=== PATIENT | female | born 1940 | race Caucasian/White ===

== ENCOUNTER 2017-02-17 10:27 | Emergency (ER) | payer OTHER ==
--- NOTE | 2017-02-17 10:49 | CPEKG ---
Heart Rate: 57 RR Interval: 1053 P-R Interval: 172 QRSD Interval: 90 QT Interval: 404 QTC Interval: 394 P Broaddus: 63 QRS Broaddus: -25 T Wave Broaddus: 26 EKG Severity - OTHERWISE NORMAL ECG - EKG Impression: SINUS RHYTHM EKG Impression: BORDERLINE LEFT AXIS DEVIATION Electronically Signed By: Héctor Comer 17-Feb-2017 15:37:34
--- NOTE | 2017-02-17 10:50 | EDPHY ---
HPI/HX/ROS/PE/MDM Narrative: CHIEF COMPLAINT: Chest pain HPI: The patient is a 76 y/o female, with a history of hypertension, complaining of intermittent chest "heaviness" and lightheadedness for the last month. Her most recent episode this morning started a couple hours ago. Her symptoms generally present every morning as she makes her coffee and sits down to drink it. She denies current pain, but "feels like it's hard to breathe." She denies syncope, nausea, vomiting, abdominal pain, cough, or fever. She denies cardiac disease history, but reports she had a stress test [address] Beasley and he later recommended a cardiac cath for leg swelling, which she has not had yet. REVIEW OF SYSTEMS: Aside from elements discussed in the HPI, a comprehensive 10-point review of systems was reviewed and is negative. PMH: Hypertension, osteoporosis SOCIAL HISTORY: at bedside. Safety And Health Manager: Dr. Beasley PHYSICAL EXAM: General:Patient is alert, in no acute distress. ENT:Eyes are normal to inspection. ENT inspection normal. Neck: Normal inspection. Full range of motion. Respiratory:No respiratory distress. Breath sounds normal bilaterally. Cardiovascular: Regular rate and rhythm. Strong peripheral pulses. Normal cap refill. Abdomen:The abdomen is nontender to palpation. There are no peritoneal signs. Back: Normal to inspection. No tenderness to palpation. Skin: Normal color. No rash. Warm and dry. Extremities: 1+ trace edema bilateral lower extremities, Normal appearance. Full range of motion. Neuro: Oriented x3. Normal motor function. Normal sensory function. ED Course: IV established. Labs drawn including CBC, CHEM, troponin. Patient placed on medical biller coder. Chest x-ray ordered. The 12 lead EKG was interpreted by myself. See hard copy and/or "tracemaster" electronic copy for interpretation. Patient's Na is low at 126; however, her sodium is chronically low. I've recommended following up with her PCP for this. 1150: Consulted with Dr. Dixon, cardiology. He assessed patient in the ED and recommended outpatient nuclear study. Patient agreed with this plan. She will be given strict return precautions. MDM: I see no signs of PE, TAD, ACS, PNA, PTX. - Data Points Imaging Results: Imaging Impressions Chest X-Ray 06/02/17 10:48 Impression: 1. No active cardiopulmonary disease seen. Tiny bilateral pleural effusions are suspected, however. 2. Mild compression superior endplate of L2. Consider DEXA scan at some point to evaluate for underlying bone mineral density. Imaging: I viewed and interpreted images myself Laboratory Results: Laboratory Results 02/17/17 10:40 02/17/17 10:40 02/17/17 02/17/17 10:40 10:40 WBC 6.72 10^3/uL 10^3/uL (3.80-9.50) RBC 4.12 10^6/uL L 10^6/uL (4.18-5.33) Hgb 12.7 g/dL g/dL (12.6-16.3) Hct 36.5 % L % (38.0-47.0) MCV 88.6 fL fL (81.5-99.8) MCH 30.8 pg pg (27.9-34.1) MCHC 34.8 g/dL g/dL (32.4-36.7) RDW 12.7 % % (11.5-15.2) Plt Count 251 10^3/uL 10^3/uL (150-400) MPV 9.4 fL fL (8.7-11.7) Neut % (Auto) 35.4 % L % (39.3-74.2) Lymph % (Auto) 54.6 % H % (15.0-45.0) [place] % (Auto) 8.2 % % (4.5-13.0) Eos % (Auto) 0.9 % % (0.6-7.6) Baso % (Auto) 0.6 % % (0.3-1.7) Nucleat RBC Rel Count 0.0 % % (0.0-0.2) Absolute Neuts (auto) 2.38 10^3/uL 10^3/uL (1.70-6.50) Absolute Lymphs (auto) 3.67 10^3/uL H 10^3/uL (1.00-3.00) Absolute Monos (auto) 0.55 10^3/uL 10^3/uL (0.30-0.80) Absolute Eos (auto) 0.06 10^3/uL 10^3/uL (0.03-0.40) Absolute Basos (auto) 0.04 10^3/uL 10^3/uL (0.02-0.10) Absolute Nucleated RBC 0.00 10^3/uL 10^3/uL (0-0.01) Immature Gran % 0.3 % % (0.0-1.1) Immature Gran # 0.02 10^3/uL 10^3/uL (0.00-0.10) Sodium 126 mEq/L L mEq/L (134-144) Potassium 3.4 mEq/L L mEq/L (3.5-5.2) Chloride 89 mEq/L L mEq/L (97-110) Carbon Dioxide 30 mEq/l mEq/l (22-31) Anion Gap 7 mEq/L L mEq/L (8-16) BUN 14 mg/dL mg/dL (7-23) Creatinine 0.6 mg/dL mg/dL (0.6-1.0) Estimated GFR > 60 Glucose 58 mg/dL L mg/dL (70-100) Calcium 9.3 mg/dL mg/dL (8.5-10.4) Troponin I < 0.012 ng/mL ng/mL (0-0.034) General Time Seen by Provider: 02/17/17 10:38 Initial Vital Signs: Initial Vital Signs Temperature (C) 36.7 C 02/17/17 10:29 Heart Rate 62 02/17/17 10:29 Respiratory Rate 16 02/17/17 10:29 Blood Pressure 169/87 H 02/17/17 10:29 O2 Sat (%) 99 02/17/17 10:29 O2 Delivery Mode Room Air O2 (L/minute) 2 Allergies/Adverse Reactions: No Known Allergies Allergy (Unverified 05/25/13 18:44) Home Medications: Medication Instructions Recorded Amlopidine Dose Ink 05/25/13 Hydrochlorothiazide Dose Unk 05/25/13 Lisinopril Dose Unk 05/25/13 POTASSIUM CHLORIDE [K-ARACELIS] 20 meq PO BID #30 packet 05/25/13 Departure - Departure Disposition: Home, Routine, Self-Care Clinical Impression: Chest pain Qualifiers: Chest pain type: other chest pain Qualified Code(s): R07.89 - Other chest pain Condition: Good Instructions: Chest Pain (ED) Additional Instructions: 1. Follow up with Dr. Beasley next week for outpatient nuclear study. 2. Return to the ED for any worsening of symptoms. Referrals: Tomy Beasley MD [Medical Doctor] - As per Instructions Report Scribed for: Héctor Comer Report Scribed by: Preethi Mills Date of Report: 02/17/17 Time of Report: 10:50 Physician Review and Approval Statement: Portions of this note were transcribed by an ED scribe. I personally performed the history, physical exam, and medical decision making; and confirm the accuracy of the information in the transcribed note.
[2017-02-17 10:59] LABS: % IMMATURE GRANULYOCYTES 0.3 % (0.0-1.1); ABSOLUTE IMMATURE GRANULOCYTES 0.02 10^3/uL (0.00-0.10); ADD DIFF? NO; ADD MORPH? NO; ADD SCAN? NO; ATYPICAL LYMPHOCYTE FLAG 20 (0-99); FRAGMENT RBC FLAG 0 (0-99); HEMATOCRIT 36.5 % (38.0-47.0); HEMOGLOBIN 12.7 g/dL (12.6-16.3); LEFT SHIFT FLG 0 (0-99); LIPEMIA HEMOLYSIS FLAG 90 (0-99); MEAN CELL HEMOGLOBIN 30.8 pg (27.9-34.1); MEAN CELL HEMOGLOBIN CONCENTR. 34.8 g/dL (32.4-36.7); MEAN CELL VOLUME 88.6 fL (81.5-99.8); MEAN PLATELET VOLUME 9.4 fL (8.7-11.7); PLATELET CLUMPS FLAG 0 (0-99); PLATELET COUNT 251 10^3/uL (150-400); RED BLOOD CELL COUNT 4.12 10^6/uL (4.18-5.33); RED CELL DISTRIBUTION WIDTH 12.7 % (11.5-15.2)
[2017-02-17 11:03] VITALS: RESP 18
[2017-02-17 11:19] LABS: CALCIUM 9.3 mg/dL (8.5-10.4); CARBON DIOXIDE 30 mEq/l (22-31); CHLORIDE 89 mEq/L (97-110); CREATININE 0.6 mg/dL (0.6-1.0); GLOMERULAR FILTRATION RATE > 60; GLUCOSE 58 mg/dL (70-100); SODIUM 126 mEq/L (134-144)
[2017-02-17 11:27] LABS: ANION GAP 7 mEq/L (8-16); POTASSIUM 3.4 mEq/L (3.5-5.2)
[2017-02-17 11:31] LABS: TROPONIN I < 0.012 ng/mL (0-0.034)
--- NOTE | 2017-02-17 12:28 | GCON ---
[f rep st] CONSULTATION CARDIOLOGY CONSULTATION I have been asked to see the patient for chest pain. The patient has anterior chest discomfort. She gets this discomfort, and it feels like it may be a pressure on her chest. It is not a tightnes s, and there is no radiation to her jaw, arms, or neck. There is no radiation to the back. It is not associated with lightheadedness, sweatiness, dizziness, palpitations. It is not associate d with nausea, vomiting. She has been noticing it for a month. The discomfort, when it is bad, can be 6/10. It is often in the morning when she wakes up, and then it might come a few times during the day. She had similar discomfort to this before, and in October she saw Dr. Beasley, who did a stress test that was normal, an echocardiogram that was normal, and yet he talked to the patient about possibly doing an angiogram. They never did an angiogram. She is getting ready to leave for [facility], where she will be after March 03 for the summer. She has no nausea, vomiting, diarrhea, or constipation. No pleuritic chest pain. No fever, chills, cough. No syncope, near syncope. No hot, swollen joints. No major rashes. No arthralgias. She has no trauma. She is not having any other complaints, she tells me. She is not having migraine he adaches. No focal neurologic issues. No history of atrial fibrillation. No history of other arrhythmias. CARDIAC RISK FACTORS: Positive for hypertension. Cardiac risk factors negative for hyperlipidemia, diabetes mellitus, obesity, hyperuricemia, family history of premature coronary disease, or known coronary artery disease. PAST MEDICAL HISTORY: FAMILY HISTORY: She has no family history of premature coronary disease. No history of unexplained sudden at a young age. SOCIAL HISTORY: She is from [facility], and she is going there for the summer near [place] . She lived in [place] for 30 years. She [place] a [place], and she is very excited, and she will be there all summer. She does not smoke. She does not drink significant amounts of a lcohol. She lives with her . She is active and gets about well. REVIEW OF SYSTEMS: A 12-point review of systems is negative, except as noted above. She also has a history of osteoporosis. ALLERGIES: None. MEDICATIONS: Amlodipine, hydrochlorothiazide, lisinopril, and KCl. PHYSICAL EXAMINATION: VITAL SIGNS: Blood pressure 130/70, heart rate 66, respiratory rate 12. She is afebrile. HEENT: Pupils equal and reactive. Mucous membranes in the mouth moist. NECK: Supp le. CARDIOVASCULAR: S1, S2. Soft systolic murmur, left sternal border. No diastolic murmur. No S3, S4. No rubs. PULMONARY: Rhonchi. No rales, wheezing or dullness. ABDOMEN: Soft, nontender, without masses. CVA, no tenderness. EXTREMITIES: No edema, inflammation or ulceration. She has a little puffiness at her ankles. NEUROLOGIC: Cranial nerves 2-12 appear to be grossly normal. Mo tor and sensory intact. PSYCH: No obvious anxiety or depression. SKIN: Age-related changes. LABS: Troponins negative. A recent stress test and echocardiographic study have been negative with in the last 6 months for the same kind of discomfort. She does have anemia at 36.5. Sodium 126, potassium 3.4, chloride 89, CO2 30, BUN 14, creatinine 0.6. EKG shows nonspecific ST-T changes. ASSESSMENT AND PLAN: Chest discomfort. The cause of her chest discomfort is not clear. It is not typical angina. It does not come with exertion. It does not go away with rest. It is timed in the morning and may be related to food. There is nothing to suggest disease of the great vessels. Her pulses are full and equal. There is nothing to suggest pulmonary embolic disease. There is nothing to suggest major other GI or pulmonary pathology right now, such as a paraesophagea l hernia, early GI bleed, etc. I do not think she is having an acute coronary syndrome by any means . However, my partner did discuss with her the possibility of coronary angiogram, and I talked to her about doing an angiogram today to make sure she was fine. I also went over noninvasive options, suc h as a nuclear imaging stress test. The last stress she had she passed and did very well, had no ch est pain, no arrhythmias; however, it was not with nuclear imaging, so she has decided she wants to go home, get a study with nuclear imaging. I have told her that if she deteriorates or gets worse, develops new symptoms or persistent symptoms, or has any impending sense of doom, significant arrhyt hmias, etc., she needs to come to the emergency room, and she says she will do that. She will be wi th family. She will also watch for the evolution of these symptoms to see if it morphs into something that may be more GI or more musculoskeletal or more pulmonary, and she will work with her own doctors on this . All her questions have been answered. I have discussed her case with the emergency room physician. I think that she should do well with a nuclear imaging study, and she will call the office and get it done right away. Then if it shows t hat she needs further evaluation or angiography, we can get that done for her. She understands all the options, and this is what she would like to do right now. She does have an anemia, which needs to be watched. It could be that this is gastroesophageal. It could be that she has had some blood loss, may have GERD, hiatal hernia, peptic ulcer disease, etc., and she will david ch for these symptoms and for black stools and keep an eye on things. All her questions have been answered. She is going to follow up with her primary care doctor, and s he is going to call our office today to set up a nuclear stress test and an appointment with Dr. Tegan watkins, her soldering machine operator automatic, who she would like to follow with. /[id number]/MODL
[2017-02-17 12:44] VITALS: BP 174/86; PULSE 55; TEMP 97.7; O2SAT 100
== END 2017-02-17 12:30 | disposition home or self-care (01) ==
DX: R07.89 Other chest pain (principal); I10 Essential (primary) hypertension

== ENCOUNTER → 2017-02-21 | Outpatient (CLI) | payer OTHER | LOC: BHFA 09:30 | PROVIDERS: ATTEND Internal Medicine Interventional Cardiology | DX: R07.9 Chest pain, unspecified (principal) | CPT/HCPCS: 78452; 93017; A9500 ==

== ENCOUNTER 2017-06-15 07:27 | Day surgery (SDC) | payer OTHER ==
[2017-06-15] MEDS ORDERED: FAMOTIDINE 20 MG TAB PO ONE (07:30)
[2017-06-15] MEDS ORDERED: DIAZEPAM 5 MG TAB PO ONE (07:30)
[2017-06-15] MEDS ORDERED: diphenhydrAMINE 25 MG CAP PO ONE (07:30)
[2017-06-15] MEDS ORDERED: ASPIRIN EC 325 MG TAB PO ONE (07:30)
[2017-06-15] MEDS ORDERED: NS 1,000 ML IV ONE (07:30)
--- NOTE | 2017-06-15 07:50 | CPEKG ---
Heart Rate: 70 RR Interval: 857 P-R Interval: 152 QRSD Interval: 78 QT Interval: 388 QTC Interval: 419 P Commerce: 55 QRS Commerce: -41 T Wave Commerce: 44 EKG Severity - ABNORMAL ECG - EKG Impression: SINUS RHYTHM EKG Impression: LEFT ANTERIOR FASCICULAR BLOCK Electronically Signed By: Elder De La O 15-Jun-2017 17:30:57
[2017-06-15 08:10] LABS: % IMMATURE GRANULYOCYTES 0.2 % (0.0-1.1); ABSOLUTE IMMATURE GRANULOCYTES 0.01 10^3/uL (0.00-0.10); ADD DIFF? NO; ADD MORPH? NO; ADD SCAN? NO; ATYPICAL LYMPHOCYTE FLAG 20 (0-99); FRAGMENT RBC FLAG 0 (0-99); HEMOGLOBIN 12.8 g/dL (12.6-16.3); LEFT SHIFT FLG 0 (0-99); LIPEMIA HEMOLYSIS FLAG 90 (0-99); MEAN CELL HEMOGLOBIN 31.1 pg (27.9-34.1); MEAN CELL HEMOGLOBIN CONCENTR. 34.6 g/dL (32.4-36.7); MEAN CELL VOLUME 89.8 fL (81.5-99.8); MEAN PLATELET VOLUME 9.5 fL (8.7-11.7); PLATELET CLUMPS FLAG 0 (0-99); PLATELET COUNT 271 10^3/uL (150-400); RED BLOOD CELL COUNT 4.12 10^6/uL (4.18-5.33); RED CELL DISTRIBUTION WIDTH 12.5 % (11.5-15.2)
[2017-06-15 08:21] LABS: INR 1.06 (0.83-1.16); PROTIME(PATIENT) 13.7 SEC (12.0-15.0)
[2017-06-15 08:28] LABS: CALCIUM 9.4 mg/dL (8.5-10.4); CARBON DIOXIDE 28 mEq/l (22-31); CHLORIDE 95 mEq/L (97-110); CHOLESTEROL 176 mg/dL (140-220); CHOLESTEROL/HDL RATIO 2.51 RATIO (1.00-4.44); CREATININE 0.8 mg/dL (0.6-1.0); GLOMERULAR FILTRATION RATE > 60; GLUCOSE 78 mg/dL (70-100); HIGH DENSITY LIPOPROTEIN 70 mg/dL (40-85); LDL/HDL RATIO 1.34 RATIO (1.00-3.22); LOW DENSITY LIPOPROTEIN 94 mg/dL (80-100); MAGNESIUM 1.8 mg/dL (1.6-2.3); NON-HIGH DENSITY LIPOPROTEIN 106 mg/dL (90-129); SODIUM 133 mEq/L (134-144); TRIGLYCERIDE 62 mg/dL (35-135); VERY LOW DENSITY LIPOPROTEINS 12 mg/dL (8-25)
[2017-06-15 08:46] LABS: ANION GAP 10 mEq/L (8-16); POTASSIUM 3.6 mEq/L (3.5-5.2)
[2017-06-15] MEDS ORDERED: LIDOCAINE 1% 300 MG/30 ML SDV ONE (08:49)
[2017-06-15] MEDS ORDERED: VERAPAMIL 5 MG/2 ML VIAL ONE (08:50)
[2017-06-15] MEDS ORDERED: MIDAZOLAM 2 MG/2 ML VIAL ONE (08:50)
[2017-06-15] MEDS ORDERED: HEPARIN 10,000 UNIT/10 ML MDV ONE (08:50)
[2017-06-15] MEDS ORDERED: IOPAMIDOL (ISOVUE-370) 150 ML BTL IV ONE (08:50)
[2017-06-15] MEDS ORDERED: fentaNYL 100 MCG/2 ML INJ ONE (08:50)
--- NOTE | 2017-06-15 09:16 | PDHPUP ---
History & Physical Update H&P update statement: This history and physical update is based on an assessment of the patient which was completed after admission or registration (within 24 hours), but prior to the surgery/procedure. H&P update: H&P reviewed & patient examined, no change in patient's condition since H&P completed
--- NOTE | 2017-06-15 09:17 | PDPROPOC ---
Sedation Plan of Care Sedation Plan of Care: vital signs stable, mental status noted, patient educated of risks, benefits, alternatives, patient can tolerate sedation ASA Classification: ASA 3 Planned drugs: fentanyl, midazolam, other (etomidate possibly) Mallampati Score: Class 2 Mallampati Reference Image: Patient passed 3-3-2 rule?: Yes
[2017-06-15] MEDS ORDERED: OXYCODONE/APAP 5/325 TAB PO PRN (11:32)
[2017-06-15] MEDS ORDERED: ATROPINE SULFATE 1 MG/10 ML SYR IVP PRN (11:32)
[2017-06-15] MEDS ORDERED: NITROGLYCERIN 0.4 MG BTL SL PRN (11:32)
[2017-06-15] MEDS ORDERED: ONDANSETRON 4 MG/2 ML VIAL IVP PRN (11:32)
[2017-06-15] MEDS ORDERED: HYDROCODONE/APAP 5/325 TAB PO PRN (11:32)
--- NOTE | 2017-06-15 13:50 | CPIP ---
[f rep st] INVASIVE CARDIAC PROCEDURE PROCEDURE PERFORMED: 1. Selective coronary angiography. 2. Left heart catheterization. 3. Left ventriculogram. 4. TR band arteriotomy repair, this was a left radial approach. COMPLICATIONS: None. INDICATIONS/APPROPRIATE USE CRITERIA: The patient has an intermediate risk stress test given the EKG changes, with exercise and also has had CCS class 3 symptoms of angina occurring at rest or with min imal activity with several spells of that over the past 6 months. PROCEDURE IN DETAIL: After informed consent was obtained n.p.o. status was confirmed, the region of the left wrist was cleaned, prepped, and draped in a sterile fashion. A plethysmography and trace as sisted Denton's test was performed, documenting dual arterial supply to the left index finger. The pa tient had a 5-Qatari sheath placed in the right radial artery with single entry puncture of the vesse l. The patient then underwent the previously mentioned diagnostic procedure with use of a JL3.5, JR4 , Jose L Right and a 5-Qatari pigtail catheter. Standard wire exchange technique was utilized for all catheter exchanges. The left main coronary lumen is approximately 8 mm in size and trifurcates into an LAD, small ramus, and circumflex system. The JL3.5 catheter tended to deep throat into the proximal LAD, however, the circumflex vessel was adequately visualized. The LAD is approximately 3 mm in size giving rise to se veral important septal and diagonal branches with no evidence of flow-limiting obstruction, dissectio n or thrombus. The circumflex is likewise approximately 3 mm in size. It gives rise to 2 important obtuse marginal branches and a posterolateral ventricular branch. No flow-limiting obstruction, diss ection or thrombus is identified. There is no luminal irregularity. A small ramus branch is approxi mately 2 mm in size and also has SIM-3 flow, poorly visualized because of the positioning of the cat heter, however, this vessel is too small to be a candidate for intervention and is not obviously obst ructed. The Jose L Right tended to seat better into the right coronary artery and was ultimately u sed for right coronary artery visualization. The right coronary is approximately 2.75 mm in size pro ximally and is a dominant vessel giving rise to the posterior descending blood vessel. No flow-limit ing obstruction, dissection or thrombus is identified. The patient underwent left heart catheterizat ion demonstrating normal left ventricular end-diastolic pressure measured at 9 mmHg. The patient und erwent left ventriculogram in the MONTANEZ projection, demonstrating preserved and hypercontractile left v entricular systolic function. Ejection fraction is 70% with no segmental wall motion abnormalities. The visualized portion of the thoracic aorta reveals 3 sinuses of Valsalva most consistent with a tri leaflet aortic valve. There is no evidence of aortic dissection or aneurysm formation. SUMMARY OF FINDINGS: The patient has no evidence of significant [place] vessel coronary disease. The re is excellent SIM-3 flow in the left anterior descending, circumflex and right coronary artery sys tems. The patient has normal left ventricular systolic function without evidence of elevation in helen stolic pressure. A cause for the patient's spells of chest discomfort, palpitations and near syncope is not identified on the basis of this study. Consideration for long-term implantable monitoring ve rsus AliveCor device could be considered. Ongoing management of the patient's risk factors should be continued. /[id number]/MODL
== END 2017-06-15 14:47 | disposition home or self-care (01) ==
LOC: FCATH 07:27
PROVIDERS: ATTEND Internal Medicine Cardiovascular Disease
DX: I20.9 Angina pectoris, unspecified (principal); R06.09 Other forms of dyspnea; I10 Essential (primary) hypertension; R22.0 Localized swelling, mass and lump, head; M81.0 Age-related osteoporosis without current pathological fracture; M54.5 Low back pain; Z86.010 Personal history of colon polyps
CPT/HCPCS: J1644; J2250; J3010; Q9967

== ENCOUNTER → 2017-08-24 | Outpatient (CLI) | payer OTHER | LOC: FIMAGING 10:35 | PROVIDERS: ATTEND Internal Medicine | DX: Z12.31 Encounter for screening mammogram for malignant neoplasm of breast (principal) | CPT/HCPCS: G0202 ==

== ENCOUNTER 2017-10-15 13:46 | Emergency (ER) | payer OTHER ==
[2017-10-15 13:54] VITALS: RESP 16; O2SAT 97
[2017-10-15] MEDS ORDERED: TDAP ADULT 0.5 ML INJ (BOOSTRIX) IM ONE (13:59)
--- NOTE | 2017-10-15 15:11 | EDPHY ---
H & P Time Seen by Provider: 10/15/17 14:10 HPI/ROS: CHIEF COMPLAINT: Laceration left 3rd and 4th fingers HISTORY OF PRESENT ILLNESS: 76-year-old female presents to the emergency department with laceration to her left 3rd and 4th fingers. The patient was at home using a knife and accidentally cut her finger on a knife. The incident happened just prior to arrival. She is right-hand dominant. She is unsure of her last tetanus shot. ROS: Denies numbness or tingling in her fingers, retained foreign body. Past Medical/Surgical History: Hypertension Social History: Smoking Status: Never smoked Physical Exam: On examination patient has a 1 cm laceration to the palmar aspect of the left 3rd finger overlying mid phalanx. No palpable crepitus or other bony abnormality. No evidence of retained foreign body. There is also 1.5 cm flap laceration to the palmar aspect of the left 4th finger overlying mid phalanx. No active bleeding noted. No evidence of retained foreign body or tendon injury identified. Full range of motion of her fingers. The other fingers do not appear injured. Normal sensation to light touch with normal 2 point discrimination. Constitutional: Initial Vital Signs Temperature (C) 36.6 C 10/15/17 13:50 Heart Rate 66 10/15/17 13:50 Respiratory Rate 16 10/15/17 13:50 Blood Pressure 135/71 H 10/15/17 13:50 O2 Sat (%) 97 10/15/17 13:50 O2 Delivery Mode Room Air Allergies/Adverse Reactions: No Known Allergies Allergy (Verified 06/13/17 16:24) Home Medications: Medication Instructions Recorded Alendronate Sodium [Fosamax 70 MG 70 mg PO DODGE@0700 06/13/17 (*)] Chlorthalidone [Chlorthalidone 25 25 mg PO DAILY 06/13/17 mg (*)] Cholecalciferol Vit D3 [Vitamin D3 1,000 units PO DAILY 06/13/17 (*)] Lisinopril [Zestril 20 mg (*)] 40 mg PO DAILY 06/13/17 Terazosin HCl [Hytrin 5 MG (*)] 5 mg PO DAILY 06/13/17 MDM/Departure - [facility] Procedures: Laceration repair #1. Verbal consent was obtained from the patient. The 1 cm laceration on the left middle finger was anesthetized using digital block using 1% lidocaine without epinephrine 0.5% bupivacaine without epinephrine. The wound was irrigated with saline, draped and explored to its base with a gloved finger. There were no deep structures involved. No tendon injury was identified. The wound was repaired with 5 0 Ethilon, 3 sutures. The wound repair was simple. The procedure was performed by myself. Laceration repair #2. Verbal consent was obtained from the patient. The the 1.5 cm flap laceration on the left 4th finger was anesthetized using digital block using 1% lidocaine without epinephrine 0.5% bupivacaine without epinephrine. The wound was irrigated with saline, draped and explored to its base with a gloved finger. There were no deep structures involved. No tendon injury was identified. The wound was repaired with 5 0 Ethilon, 5 sutures. The wound repair was simple. The procedure was performed by myself. Medications Given: Discontinued Medications Diphtheria/Tetanus/Acell Pertussis (Boostrix) 0.5 ml IM .ONCE ONE Stop: 10/15/17 14:00 Last Admin: 10/15/17 14:21 Dose: 0.5 ml ED Course/Re-evaluation: 76-year-old female presents with lacerations. See procedure note. Patient's tetanus shot was updated. She was given wound care precautions. - Depart Disposition: Home, Routine, Self-Care Clinical Impression: Laceration of left middle finger Qualifiers: Encounter type: initial encounter Damage to nail status: without damage Foreign body presence: without foreign body Qualified Code(s): S61.213A - Laceration without foreign body of left middle finger without damage to nail, initial encounter Laceration of left ring finger Qualifiers: Encounter type: initial encounter Damage to nail status: without damage Foreign body presence: without foreign body Qualified Code(s): S61.215A - Laceration without foreign body of left ring finger without damage to nail, initial encounter Condition: Good Instructions: Care For Your Stitches (ED), Laceration (ED), Acute Wounds (ED) Additional Instructions: Wound Care Follow-Up: Removal of sutures in 10 days. Suture removal is complimentary in uncomplicated cases. Infection or abnormal findings would require reevaluation by the MD. In that case, you may be billed. Return if he notices any signs or symptoms of infection such as redness, swelling, increased pain, fever, purulent drainage. Referrals: Nelida Brown MD [Primary Care Provider] - As per Instructions
[2017-10-15 15:33] VITALS: BP 151/82; PULSE 54; TEMP 98.1
== END 2017-10-15 15:31 | disposition home or self-care (01) ==
PROC: 0HQGXZZ Repair Left Hand Skin, External Approach (ICD-10-PCS; principal; 2017-10-15)
DX: S61.213A Laceration without foreign body of left middle finger without damage to nail, initial encounter (principal); S61.215A Laceration without foreign body of left ring finger without damage to nail, initial encounter; I10 Essential (primary) hypertension; Z23 Encounter for immunization; W26.0XXA Contact with knife, initial encounter

== ENCOUNTER → 2018-09-06 | Outpatient (CLI) | payer OTHER | LOC: BHFA 11:30 | PROVIDERS: ATTEND Internal Medicine Cardiovascular Disease | DX: I34.0 Nonrheumatic mitral (valve) insufficiency (principal) ==

== ENCOUNTER → 2018-09-14 | Outpatient (CLI) | payer OTHER | LOC: FIMAGING 12:04 | PROVIDERS: ATTEND Internal Medicine | DX: Z12.31 Encounter for screening mammogram for malignant neoplasm of breast (principal) ==

== ENCOUNTER → 2018-09-21 | Outpatient (CLI) | payer OTHER | LOC: FIMAGING 10:47 | PROVIDERS: ATTEND Orthopaedic Surgery | DX: M17.11 Unilateral primary osteoarthritis, right knee (principal) ==

== ENCOUNTER 2018-10-03 10:04 | Inpatient (IN) | payer OTHER ==
[~2018-10-03 10:04] MED LIST: DEXAMETHASONE 4 MG/ML VIAL ONE; LIDOCAINE 2% 100 MG/5 ML SYR ONE; ONDANSETRON 4 MG/2 ML VIAL ONE; PHENYLEPHRINE HCL 100 MCG/ML SYR ONE; PROPOFOL/EMULSION 500 MG/50 ML BOTTLE IV ONE; ROPIVACAINE HCL 150 MG/30 ML INJ ONE; fentaNYL 100 MCG/2 ML INJ ONE
[2018-10-03] MEDS ORDERED: TRANEXAMIC ACID 3,000 MG/50 ML BAG IRR ONE (11:08)
[2018-10-03] MEDS ORDERED: ceFAZolin 2 GM/DEXTROSE 100 ML IV ONE (11:20)
[2018-10-03] MEDS ORDERED: DEXAMETHASONE 4 MG/ML VIAL IVP ONE (11:20)
[2018-10-03] MEDS ORDERED: ACETAMINOPHEN 325 MG TAB PO ONE (11:20)
[2018-10-03] MEDS ORDERED: FAMOTIDINE 20 MG TAB PO ONE (11:20)
[2018-10-03] MEDS ORDERED: LR 1,000 ML IV ONE (11:21)
[2018-10-03] MEDS ORDERED: LIDOCAINE 1% 2 ML INJ ONE (11:55)
--- NOTE | 2018-10-03 12:52 | PDANEPAE ---
ANE History of Present Illness R knee DJD, here for R TKA ANE Past Medical History - Cardiovascular History Hx Hypertension: Yes Hx Arrhythmias: No Hx Chest Pain: No Hx Coronary Artery / Peripheral Vascular Disease: No Hx CHF / Valvular Disease: No Hx Palpitations: No Cardiovascular History Comment: leaky heart valves - Pulmonary History Hx COPD: No Hx Asthma/Reactive Airway Disease: No Hx Recent Upper Respiratory Infection: No Hx Oxygen in Use at Home: No Hx Sleep Apnea: No Sleep Apnea Screening Result - Last Documented: Negative - Neurologic History Hx Cerebrovascular Accident: No Hx Seizures: No Hx Dementia: No - Endocrine History Hx Diabetes: No - Renal History Hx Renal Disorders: No - Liver History Hx Hepatic Disorders: No - Neurological & Psychiatric Hx Hx Neurological and Psychiatric Disorders: No - Cancer History Hx Cancer: No - Congenital Disorder History Hx Congenital Disorders: No - GI History Hx Gastrointestinal Disorders: No - Other Health History Other Health History: none - Chronic Pain History Chronic Pain: No - Surgical History Prior Surgeries: none in last 5yrs. right knee scope 8/10 yrs ago ANE Review of Systems Review of Systems: - Exercise capacity METS (RN): 4 METS ANE Patient History - Allergies Allergies/Adverse Reactions: No Known Allergies Allergy (Verified 09/25/18 14:22) - Home Medications Home Medications: Alendronate Sodium [Fosamax 70 MG (*)] 70 mg PO DODGE@0700 06/13/17 [Last Taken ] Terazosin HCl [Hytrin 5 MG (*)] 5 mg PO HS 06/13/17 [Last Taken 10/02/18] Hydrochlorothiazide [HCTZ (*)] 25 mg PO DAILY 09/21/18 [Last Taken 10/01/18] Nebivolol HCl [Bystolic 5 mg (*)] 5 mg PO DAILY 09/21/18 [Last Taken 10/03/18 07 :00] Irbesartan [Avapro] 300 mg PO DAILY 10/01/18 [Last Taken 10/02/18] - NPO status NPO Since - Liquids (Date): 10/03/18 NPO Since - Liquids (Time): 09:00 NPO Since - Solids (Date): 10/02/18 NPO Since - Solids (Time): 22:00 - Smoking Hx Smoking Status: Never smoked - Family Anes Hx Family Hx Anesthesia Complications: none ANE Labs/Vital Signs - Vital Signs Blood Pressure: 191/92 Heart Rate: 56 Respiratory Rate: 16 O2 Sat (%): 96 Height: 166.37 cm Weight: 58.06 kg ANE Physical Exam - Airway Neck exam: FROM Mallampati Score: Class 1 Mouth exam: normal dental/mouth exam - Pulmonary Pulmonary: no respiratory distress, no rales or rhonchi - Cardiovascular Cardiovascular: regular rate and rhythym, no murmur, rub, or gallop - ASA Status ASA Status: III ANE Anesthesia Plan Anesthesia Plan: GA with mask, spinal Regional Anesthesia: single shot NB
[2018-10-03] MEDS ORDERED: MIDAZOLAM 2 MG/2 ML VIAL IVP ONE (12:59)
[2018-10-03] MEDS ORDERED: MIDAZOLAM 2 MG/2 ML VIAL ONE (12:59)
[2018-10-03] MEDS ORDERED: ROPIVACAINE 0.2% 80 MG, EPINEPHrine 0.2 MG, KETOROLAC TROMETHAMINE 30 MG in SYRINGE 0 ML IU ONE (13:00)
[2018-10-03] MEDS ORDERED: TRANEXAMIC ACID 3,000 MG in NS (SYRINGE) 50 ML IRR ONE (13:00)
[2018-10-03] MEDS ORDERED: diphenhydrAMINE 25 MG CAP PO PRN (13:45)
[2018-10-03] MEDS ORDERED: TEMAZEPAM 15 MG CAP PO PRN (13:45)
[2018-10-03] MEDS ORDERED: MAGNESIUM HYDROXIDE 30 ML UDCUP PO PRN (13:45)
[2018-10-03] MEDS ORDERED: POLYETHYLENE GLYCOL 3350 17 GM PKT PO PRN (13:45)
[2018-10-03] MEDS ORDERED: DIPHENOXYLATE/ATROPINE LOMOTIL 1 TAB PO PRN (13:45)
[2018-10-03] MEDS ORDERED: oxyCODONE IR 5 MG TAB PO PRN (13:45)
[2018-10-03] MEDS ORDERED: LACTULOSE 20 GM/30 ML UDCUP PO PRN (13:45)
[2018-10-03] MEDS ORDERED: PROMETHAZINE HCL 25 MG SUPPR PR PRN (13:45)
[2018-10-03] MEDS ORDERED: ONDANSETRON 4 MG/2 ML VIAL IVP PRN (13:45)
[2018-10-03] MEDS ORDERED: CYCLOBENZAPRINE 10 MG TAB PO PRN (13:45)
[2018-10-03] MEDS ORDERED: METOCLOPRAMIDE 10 MG/2 ML VIAL IVP PRN (13:45)
[2018-10-03] MEDS ORDERED: BISACODYL 10 MG SUPP PR PRN (13:45)
[2018-10-03] MEDS ORDERED: PROMETHAZINE HCL 25 MG/ML INJ IVP PRN (13:45)
[2018-10-03] MEDS ORDERED: ONDANSETRON DISINTEGRATING 4 MG TAB PO PRN (13:45)
[2018-10-03] MEDS ORDERED: MEPERIDINE 25 MG/0.5 ML AMP IVP PRN (13:50)
[2018-10-03] MEDS ORDERED: fentaNYL 100 MCG/2 ML INJ IVP PRN (13:50)
[2018-10-03] MEDS ORDERED: HYDROmorphONE/DILAUDID 2 MG/ML INJ IVP PRN (13:50)
[2018-10-03] MEDS ORDERED: DIAZEPAM 5 MG/ML 1 ML SYR IVP PRN (13:50)
[2018-10-03] MEDS ORDERED: NALOXONE HCL 0.4 MG/ML INJ IVP PRN (13:50)
[2018-10-03] MEDS ORDERED: LR 1,000 ML IV SCH (14:00)
--- NOTE | 2018-10-03 14:04 | PDMN ---
Medical Necessity [place] [facility] [place], Total A-2days: 77 yo s/p R TKA, meets IP criteria for advanced age, pain control needs, ASA III, hx of HTN, leaky heart valves.
[2018-10-03] MEDS ORDERED: PROPOFOL 200 MG/20 ML VIAL ONE (14:15)
--- NOTE | 2018-10-03 14:52 | POSTOPPROG ---
Post Op Note Date of Operation: 10/03/18 Surgeon: Janeth Nguyen District Gauger: Berta Nguyen PAc Anesthesiologist: Statz Anesthesia: Spinal Pre-op Diagnosis: R knee DJD Post-op Diagnosis: same Indication: pain Procedure: R TKA Findings: DJD knee Inf/Abcess present in the surg proc area at time of surgery?: No EBL: 50-100
--- NOTE | 2018-10-03 14:59 | POSTANESTH ---
Post Anesthetic Evaluation Cardiovascular Status: Normal, Stable Respiratory Status: Normal, Stable Level of Consciousness/Mental Status: Can Participate in Eval Pain Control: Adequate, Prn Tx Ordered Nausea/Vomiting Control: Adequate, Prn Tx Ordered Complications Possibly Related to Anesthesia: None Noted (Moving bilat LE)
[2018-10-03] MEDS: ACETAMINOPHEN 325 MG TAB PO SCH (17:28)
[2018-10-03] MEDS: ASPIRIN 81 MG CHEWABLE TAB PO SCH (20:43)
[2018-10-03] MEDS: SENNOSIDES/DOCUSATE SODIUM TAB PO SCH (20:43)
[2018-10-03] MEDS: FAMOTIDINE 20 MG TAB PO SCH (20:44)
[2018-10-03] MEDS: ceFAZolin 2 GM/DEXTROSE 100 ML IV SCH (20:45)
[2018-10-03] MEDS ORDERED: TERAZOSIN HCL 5 MG CAP PO SCH (21:00)
[2018-10-04] MEDS: ACETAMINOPHEN 325 MG TAB PO SCH ×2 (00:04→05:15)
[2018-10-04] MEDS: ceFAZolin 2 GM/DEXTROSE 100 ML IV SCH (05:15)
[2018-10-04 07:25] VITALS: BP 152/81
[2018-10-04] MEDS: SENNOSIDES/DOCUSATE SODIUM TAB PO SCH (08:00)
[2018-10-04] MEDS: FAMOTIDINE 20 MG TAB PO SCH (08:01)
[2018-10-04] MEDS: ASPIRIN 81 MG CHEWABLE TAB PO SCH (08:01)
[2018-10-04] MEDS ORDERED: NEBIVOLOL HCL 5 MG TAB PO SCH (09:00)
[2018-10-04] MEDS ORDERED: HYDROCHLOROTHIAZIDE 25 MG TAB PO SCH (09:00)
[2018-10-04] MEDS ORDERED: IRBESARTAN 150 MG TAB PO SCH (09:00)
[2018-10-04] MEDS ORDERED: PNEUMOC 13-VAL CONJ-DIP CRM/PF 0.5 ML SYR (PREVNAR 13) IM ONE (10:33)
--- NOTE | 2018-10-04 10:56 | SOAPPROG ---
SOAP Progress Note Assessment/Plan: Assessment: Patient is doing well POD 1 s/p R TKA Pain management: pain is well controlled on oral pain meds. VTE ppx: recommend aspirin 81 mg BID for 4 weeks, cont SHUN and SCDs Anemia: level is expected initially postop. Asymptomatic. Continue to monitor D/c planning: Patient has done better than anticipated and would like to be discharged to home today. Patient must be released from PT before discharge to home. hyponatremia: restrict oral fluid intake to 1L, encourage sodium rich fluids Plan: 10/04/18 10:55 Subjective: patient is doing well today, denies SOB, chest pain and N/V Objective: Vital Signs Temp Pulse Resp BP Pulse Ox 36.3 C 52 L 16 152/81 H 95 10/04/18 07:24 10/04/18 07:24 10/04/18 07:24 10/04/18 07:24 10/04/18 07:24 Laboratory Results 10/04/18 05:24 10/04/18 05:24 10/03/18 10/04/18 10/05/18 05:59 05:59 05:59 Intake Total 1550 Output Total 30 300 Balance 1520 -300 RLE; incision dressing is clean and dry, NVi, +pf/df ICD10 Worksheet Patient Problems: Problems Problem Status Onset Primary localized osteoarthritis of right knee Acute Chest pain Acute
--- NOTE | 2018-10-04 11:56 | ASMTLACE ---
[facility] Length of stay for Answers: 2 days current admission Acuity / Level of Answers: Yes Care: Did the patient have an inpatient admission? # of Emergency department Answers: 1-2 visits in the last 6 months Score: 6 Date Signed: 10/04/2018 11:55 AM Electronically Signed By:DANIEL Allan
--- NOTE | 2018-10-05 17:54 | GOP ---
DATE OF OPERATION: 10/03/2018 SURGEON: Bety Nguyen MD DIGITAL STRATEGIST: Berta Nguyen PA-C ANESTHESIA: Spinal. PREOPERATIVE DIAGNOSIS: Right knee osteoarthritis. POSTOPERATIVE DIAGNOSIS: Right knee osteoarthritis. PROCEDURE PERFORMED: Right total knee arthroplasty with computer navigation, robotic assist. FINDINGS: Severe lateral patellofemoral osteoarthritis. ESTIMATED BLOOD LOSS: 30 cc. INDICATIONS: The patient is a 77-year-old female with severe and progressive pain and deformity of t he right knee unresponsive to conservative care. The risks and benefits of surgical intervention wer e explained in detail. DESCRIPTION OF PROCEDURE: The patient was brought to the operative room and placed on the table in t he supine position. Spinal anesthesia was induced without difficulty. A pneumatic tourniquet was appl ied about the right proximal thigh, and the leg was prepped and draped in a sterile fashion. The leg wong was applied. After exsanguination by elevation the tourniquet was inflated to 250 mmHg. Incision was made anterior medial from the tibial tuberosity to a point 2 cm proximal to the superior pole of the patella. Medial parapatellar arthrotomy was carried out from the superior pole of the pa tella and posteriorly in line with the fibers of the Type II VMO. The medial collateral ligament was elevated and the infrapatellar fat pad was resected. The patella was everted and the articular surface was excised. A 35 mm patellar button was placed. Attention was turned first to the distal aspect of the femur. After exposure of the femur, 2 half pi ns were placed for fixation of the femoral array. In a similar fashion, 2 pins were placed anteromed ial on the tibia for fixation of the tibial array. External land marking and registration of the hip center was performed without difficulty. Internal femoral and tibial registration was carried out w ithout difficulty and the femoral and tibial checkpoints were placed and verified for accuracy. Attention was turned to the femur. The foot print for the size 3 femoral component was cut with the saw using the [employer] robotic system and verified for accuracy against the CT based plan. In a similar f ashion, the saw was used to cut the footprint for the size 4 tibial component using the [employer] system an d verified for accuracy against the CT based plan. The tibial articular surface was excised without d ifficulty, followed by the intercondylar box cut. The knee was extended and the remnants of the medial and lateral meniscus were excised. The posterior capsule was injected with ropivacaine, epinephrine and Toradol. A size 4 tibial tray was positioned . Trial reduction was then carried out. There was excellent range of motion, alignment, and stability using the 4 x 9 mm polyethylene. All trials were then removed. The joint was thoroughly irrigated and carefully dried. The components were implanted. The permanent 4 x 9 mm polyethylene was placed without difficulty. The tourniquet was deflated and all bleeders were coagulated. The wound was thoroughly irrigated and closed using interrupted sutures of 2-0 Vicryl for the joint capsule. The subcu was closed with 3-0 V icryl and the skin with 4-0 Monocryl. Dermabond and Steri-Strips were applied followed by a compress mena dressing. The patient was then moved from the operating room to the recovery room in good conditi on, having tolerated the procedure well. /[id number]/MODL
--- NOTE | 2018-10-08 13:55 | GDS ---
ADMISSION DIAGNOSIS: Right knee osteoarthritis. DISCHARGE DIAGNOSIS: Right knee osteoarthritis. PROCEDURE: Right total knee arthroplasty. VTE PROPHYLAXIS: Recommend aspirin 81 mg twice daily for 4 weeks. BRIEF DESCRIPTION OF HOSPITAL STAY: Patient was admitted for an elective joint arthroplasty. The pa parth tolerated the procedure well and has passed physical therapy. The patient was given appropriat e antibiotic prophylaxis and venous thromboembolism prophylaxis. The patient's pain was well control led on oral pain medication, patient was holding down food, and had urinated. Decision was made to d ischarge the patient. The patient was given post-operative prescriptions pre-operatively. PLAN: Followup scheduled with Dr. Nguyen's office October 25 at 10:15. /[id number]/MODL
== END 2018-10-04 11:51 | disposition home or self-care (01) | DRG 470 ==
LOC: F3E 11:08 → F3N 18:05
PROVIDERS: ADMIT Orthopaedic Surgery; ATTEND Orthopaedic Surgery
PROC: 0SRC0JA Replacement of Right Knee Joint with Synthetic Substitute, Uncemented, Open Approach (ICD-10-PCS; principal; 2018-10-03 13:00)
PROC: 8E0Y0CZ Robotic Assisted Procedure of Lower Extremity, Open Approach (ICD-10-PCS; principal; 2018-10-03 13:00)
PROC: 8E0YXBZ Computer Assisted Procedure of Lower Extremity (ICD-10-PCS; principal; 2018-10-03 13:00)
DX: M17.11 Unilateral primary osteoarthritis, right knee (principal); I10 Essential (primary) hypertension; E87.1 Hypo-osmolality and hyponatremia; D64.9 Anemia, unspecified; Z23 Encounter for immunization
CPT/HCPCS: 97110-GP; 97161-GP; G0009; J0171; J0690; J1100; J1885; J2001; J2250; J2370; J2405; J2704; J2795; J3010

== ENCOUNTER 2018-10-19 07:06 | Inpatient (IN) | payer OTHER ==
--- NOTE | 2018-10-19 06:16 | PDGENHP ---
History and Physical History and Physical: Patient Name REBECCA RODRIGUEZ (77yo, F) ID# [id number] Appt. Date/Time 10/18/2018 10:45AM 1940 Service Dept. MAIN OFFICE Provider OLIVIA MILLS PA-C Insurance Med Primary: [employer]ARE[employer] (MEDICARE) Insurance # : [id number] Med Secondary: [employer] (MEDICARE SUPPLEMENT) Insurance # : [id number] Policy/Group # : [id number] Prescription: DSTPSDIR - Member is eligible. details Chief Complaint Patient is here 2 weeks s/p RTKA. Patient is having trouble weight bearing with and without her walker. Patient's Pharmacies [facility] #[id number] (ERX): [address] [facility], [facility] [id number], , Vitals 10/18/2018 11:39 am Ht: 5 ft 5 in Allergies Reviewed Allergies NKDA Medications Reviewed Medications alendronate 70 mg tablet 08/23/18 filled [facility] Bystolic 5 mg tablet 09/14/18 filled [facility] CeleBREX 200 mg capsule Take 2 capsules with dinner the night before surgery and one capsule daily with food for 3 weeks after surgyer 10/18/18 prescribed OLIVIA MILLS PA-C hydroCHLOROthiazide 25 mg tablet 07/13/15 filled [facility] irbesartan 300 mg tablet 09/25/18 filled [facility] lisinopril 20 mg tablet 08/02/18 filled [facility] oxyCODONE 5 mg tablet Take 1 tabs every 4 hours as needed for pain 09/20/18 filled [facility] spironolactone 25 mg tablet 09/13/18 filled [facility] terazosin 5 mg capsule TAKE 1 CAP AT BEDTIME 08/08/18 filled [facility] Vaccines None recorded. Problems Reviewed Problems Osteoarthritis of knee Family History Reviewed Family History Mother - Malignant neoplastic disease (onset age: 90) ( age: 91) Father - Diabetes mellitus (onset age: 60) ( age: 62) Social History Reviewed Social History Smoking Status: Never smoker Occupation: retired Chewing tobacco: none Alcohol intake: Occasional Caffeine intake: Moderate Illicit drugs: no Exercise level: Moderate Hand Dominance: Right Education: Post Graduate Live alone or with others?: (Notes: ) Surgical History Reviewed Surgical History Total knee arthroplasty - 10/03/2018 R knee (year not specified) 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 Past Pregnancies None recorded. Past Medical History Reviewed Past Medical History Arthritis: Y - R knee Hypertension: Y Osteopenia: Y Screening None recorded. HPI Pt. presents for knee pain 2 weeks s/p RTKA. Rebecca states that knee has always been painful since surgery- no acute worsening, but no improvement in pain. She is having pain with weight-bearing, both with and without walker. States that she had a fall in the bathroom on the day after surgery, but she thinks she fell backward and landed on her back as opposed to knee. No other known injury. She is currently taking Celebrex 200mg QD, Tylenol 1,000 mg TID and oxycodone 15-20mg QD. ROS ROS as noted in the HPI Physical Exam Patient is a 77-year-old female. Constitutional: General Appearance: healthy-appearing, NAD, and normal body habitus. Gait and Station: Appearance: antalgic gait and ambulates with walker. Cardiovascular System: Arterial Pulses Right: dorsalis pedis normal and posterior tibialis normal. Edema Right: no edema. Varicosities Right: no varicosities and capillary refill test normal. Lymph Nodes: Inspection/Palpation Right: no popliteal LAD. Knees: Inspection Right: no induration, warmth, erythema, or tibial torsion; genu valgum deformity and swelling (mild); and normal axial alignment. Bony Palpation Right: no tenderness of the lateral wall trochlear groove, the medial wall trochlear groove, or the lateral joint line and tenderness of the medial femoral condyle, the adductor tubercle, and the medial joint line. Soft Tissue Palpation Right: no tenderness of the lateral patellar retinaculum, the medial patellar retinaculum, the prepatellar bursa, the patellar tendon, the fat pad, the medial collateral ligament, the pes anserinus, the saphenous nerve, the iliotibial tract, the lateral collateral ligament, the popliteal fossa, the biceps femoris tendon, or the gastrocnemius. Active Range of Motion Right: limited; Did not assess range of motion due to fracture on xray. Stability Right : Did not assess ligamentous stability due to fracture on xray. Strength Right: Did not assess strength due to fracture on xray. Skin: Right Lower Extremity: normal. Neurologic: Sensation on the Right: T12 normal, L1 normal, L2 normal, L3 normal , L4 normal, and L5 normal. Psychiatric: Orientation: oriented to time, place, and person. Mood and Affect: normal mood and affect and active and alert. Heart Rate And Rhythm (normal) heart rate and rhythm. Lungs respirations unlabored. Assessment / Plan Xrays reviewed and show periprosthetic fracture of femur. Discussed pt. case with Dr. Nguyen who recommends pt. undergo revision surgery tomorrow (10/19/18). Pt. placed in knee brace at today's visit and advised to remain NWB until surgery tomorrow Discussed risks and benefits of operative intervention including but not limited to bleeding, infection, need for further surgery, blood clots, blood clots going to the lungs and rare perioperative complications including stroke, heart attack and . Patient understands risks and wishes to proceed. 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 Pt. also has hx of osteoperosis, hyponatremia, HTN. Pt. does not need refill of oxycodone. 1. Periprosthetic fracture M97.11XA: Periprosthetic fracture around internal prosthetic right knee joint, initial encounter 2. Pain in right knee M25.561: Pain in right knee XR, KNEE 3. History of total knee arthroplasty Z96.659: Presence of unspecified artificial knee joint 4. Acute postoperative pain G89.18: Other acute postprocedural pain Celebrex 200 mg capsule - Take 2 capsules with dinner the night before surgery and one capsule daily with food for 3 weeks after surgyer Qty: 23 capsule(s ) Refills: 0 [id number] XR, KNEE Periprosthetic fracture of medial femur Return to Office Martínez Nguyen M.D. for Surgery 120 at Surgery on 10/19/2018 at 09:15 AM Berta Nguyen PA-C for Surgery 120 at Surgery on 10/19/2018 at 09:15 AM OLIVIA MILLS PA-C for Post op 15 at MAIN OFFICE on 10/25/2018 at 10:45 AM Martínez Nguyen M.D. for Post op 15 at MAIN OFFICE on 11/15/2018 at 09: 45 AM Martínez Nguyen M.D. for Post op 15 at MAIN OFFICE on 12/27/2018 at 09: 45 AM Encounter Sign-Off Encounter signed-off by OLIVIA MILLS PA-C, 10/18/2018. Encounter performed and documented by OLIVIA MILLS PA-C Encounter reviewed & signed by OLIVIA MILLS PA-C on 10/18/2018 at 6:35pm There is not enough information to calculate an E&M code
--- NOTE | 2018-10-19 06:23 | PDHPUP ---
History & Physical Update H&P update statement: This history and physical update is based on an assessment of the patient which was completed after admission or registration (within 24 hours), but prior to the surgery/procedure. H&P update: no change in patient's condition since H&P completed
[~2018-10-19 07:06] MED LIST changes: -DEXAMETHASONE 4 MG/ML VIAL ONE; -LIDOCAINE 2% 100 MG/5 ML SYR ONE; -ONDANSETRON 4 MG/2 ML VIAL ONE; -PHENYLEPHRINE HCL 100 MCG/ML SYR ONE; -PROPOFOL/EMULSION 500 MG/50 ML BOTTLE IV ONE; +ROPIVACAINE 0.2% 80 MG, EPINEPHrine 0.2 MG, KETOROLAC TROMETHAMINE 30 MG in SYRINGE 0 ML IU ONE; -ROPIVACAINE HCL 150 MG/30 ML INJ ONE; +TRANEXAMIC ACID 3,000 MG in NS (SYRINGE) 50 ML IRR ONE; -fentaNYL 100 MCG/2 ML INJ ONE
[2018-10-19] MEDS ORDERED: ACETAMINOPHEN 325 MG TAB PO ONE (07:13)
[2018-10-19] MEDS ORDERED: FAMOTIDINE 20 MG TAB PO ONE (07:13)
[2018-10-19] MEDS ORDERED: DEXAMETHASONE 4 MG/ML VIAL IVP ONE (07:13)
[2018-10-19] MEDS ORDERED: ceFAZolin 2 GM/DEXTROSE 100 ML IV ONE (07:13)
[2018-10-19] MEDS ORDERED: LR 1,000 ML IV ONE (07:16)
[2018-10-19] MEDS ORDERED: TRANEXAMIC ACID 3,000 MG/50 ML BAG IRR ONE (08:16)
[2018-10-19] MEDS ORDERED: VANCOMYCIN 1 GM VIAL ONE (08:16)
[2018-10-19 08:20] LABS: PLATELET COUNT 465 10^3/uL (150-400)
[2018-10-19] MEDS ORDERED: MIDAZOLAM 2 MG/2 ML VIAL IVP ONE (09:08)
--- NOTE | 2018-10-19 09:12 | PDANEPAE ---
ANE Past Medical History - Cardiovascular History Hx Hypertension: Yes Hx Arrhythmias: No Hx Chest Pain: No Hx Coronary Artery / Peripheral Vascular Disease: No Hx CHF / Valvular Disease: No Hx Palpitations: No Cardiovascular History Comment: leaky heart valves - Pulmonary History Hx COPD: No Hx Asthma/Reactive Airway Disease: No Hx Recent Upper Respiratory Infection: No Hx Oxygen in Use at Home: No Hx Sleep Apnea: No Sleep Apnea Screening Result - Last Documented: Negative - Neurologic History Hx Cerebrovascular Accident: No Hx Seizures: No Hx Dementia: No - Endocrine History Hx Diabetes: No - Renal History Hx Renal Disorders: No - Liver History Hx Hepatic Disorders: No - Neurological & Psychiatric Hx Hx Neurological and Psychiatric Disorders: No - Cancer History Hx Cancer: No - Congenital Disorder History Hx Congenital Disorders: No - GI History Hx Gastrointestinal Disorders: No - Other Health History Other Health History: none - Chronic Pain History Chronic Pain: No - Surgical History Prior Surgeries: R TKA 10/03/18. right knee scope 8/10 yrs ago ANE Review of Systems Review of Systems: - Exercise capacity METS (RN): 4 METS ANE Patient History - Allergies Allergies/Adverse Reactions: No Known Allergies Allergy (Verified 09/25/18 14:22) - Home Medications Home medications: home medication list seen and reviewed Home Medications: Terazosin HCl [Hytrin 5 MG (*)] 5 mg PO HS 06/13/17 [Last Taken 10/18/18] Hydrochlorothiazide [HCTZ (*)] 25 mg PO DAILY 09/21/18 [Last Taken 2 Weeks Ago ~ 10/05/18] Nebivolol HCl [Bystolic 5 mg (*)] 2.5 mg PO DAILY 09/21/18 [Last Taken 10/19/18 06:00] Irbesartan [Avapro] 300 mg PO DAILY 10/01/18 [Last Taken 10/18/18] oxyCODONE IR [Oxycodone Ir (*)] 2.5 mg PO Q3HRS PRN 10/19/18 [Last Taken 06:00] - NPO status NPO Since - Liquids (Date): 10/19/18 NPO Since - Liquids (Time): 06:00 NPO Since - Solids (Date): 10/18/18 NPO Since - Solids (Time): 20:00 - Anes Hx Anes Hx: no prior problems - Smoking Hx Smoking Status: Never smoked - Family Anes Hx Family Hx Anesthesia Complications: none ANE Labs/Vital Signs - Labs Result Diagrams: 10/19/18 07:50 10/19/18 07:50 - Vital Signs Blood Pressure: 198/96 Heart Rate: 63 Respiratory Rate: 16 O2 Sat (%): 96 Height: 166.37 cm Weight: 57.153 kg ANE Physical Exam - Airway Neck exam: decreased ROM Mallampati Score: Class 2 Mouth exam: normal dental/mouth exam - Pulmonary Pulmonary: clear to auscultation - Cardiovascular Cardiovascular: regular rate and rhythym - ASA Status ASA Status: III ANE Anesthesia Plan Anesthesia Plan: spinal
[2018-10-19] MEDS ORDERED: PROPOFOL/EMULSION 500 MG/50 ML BOTTLE IV ONE (09:17)
[2018-10-19] MEDS ORDERED: BUPIVACAINE/DEXTROSE 7.5MG/ML 2 ML SPINAL AMP SP ONE (09:33)
[2018-10-19] MEDS ORDERED: ROPIVACAINE HCL 100 MG/20 ML INJ ONE (10:47)
[2018-10-19] MEDS ORDERED: ONDANSETRON 4 MG/2 ML VIAL IVP PRN ×2 (10:50→10:57)
[2018-10-19] MEDS ORDERED: LACTULOSE 20 GM/30 ML UDCUP PO PRN (10:50)
[2018-10-19] MEDS ORDERED: DIPHENOXYLATE/ATROPINE LOMOTIL 1 TAB PO PRN (10:50)
[2018-10-19] MEDS ORDERED: PROMETHAZINE HCL 25 MG SUPPR PR PRN (10:50)
[2018-10-19] MEDS ORDERED: POLYETHYLENE GLYCOL 3350 17 GM PKT PO PRN (10:50)
[2018-10-19] MEDS ORDERED: METOCLOPRAMIDE 10 MG/2 ML VIAL IVP PRN (10:50)
[2018-10-19] MEDS ORDERED: BISACODYL 10 MG SUPP PR PRN (10:50)
[2018-10-19] MEDS ORDERED: diphenhydrAMINE 25 MG CAP PO PRN (10:50)
[2018-10-19] MEDS ORDERED: PROMETHAZINE HCL 25 MG/ML INJ IVP PRN (10:50)
[2018-10-19] MEDS ORDERED: ONDANSETRON DISINTEGRATING 4 MG TAB PO PRN (10:50)
[2018-10-19] MEDS ORDERED: MAGNESIUM HYDROXIDE 30 ML UDCUP PO PRN (10:50)
[2018-10-19] MEDS ORDERED: DIAZEPAM 5 MG/ML 1 ML SYR IVP PRN (10:57)
[2018-10-19] MEDS ORDERED: NALOXONE HCL 0.4 MG/ML INJ IVP PRN (10:57)
[2018-10-19] MEDS ORDERED: MEPERIDINE 25 MG/0.5 ML AMP IVP PRN (10:57)
[2018-10-19] MEDS ORDERED: HYDROmorphONE/DILAUDID 2 MG/ML INJ IVP PRN (10:57)
[2018-10-19] MEDS ORDERED: fentaNYL 100 MCG/2 ML INJ IVP PRN (10:57)
[2018-10-19] MEDS ORDERED: LABETALOL HCL 5 MG/ML 20 ML MDV IVP PRN (10:57)
[2018-10-19] MEDS ORDERED: LR 500 ML IV PRN (10:57)
[2018-10-19] MEDS ORDERED: ALBUTEROL 3 ML DEYVIAL IH PRN (10:57)
[2018-10-19] MEDS ORDERED: NS 1,000 ML IV SCH (11:00)
--- NOTE | 2018-10-19 11:13 | POSTOPPROG ---
Post Op Note Date of Operation: 10/19/18 Surgeon: Janeth Nguyen Numerical Control Machine Operator: Brenda Lopez PA-C and Berta Nguyen PA-C Anesthesiologist: dr. Morley Anesthesia: Spinal Pre-op Diagnosis: periprosthetic femur fracture in setting of R TKA Post-op Diagnosis: same Indication: periprosthetic femur fracture Procedure: Revision R TKA, femoral component and poly exchange Findings: medial femoral condyle fracture Inf/Abcess present in the surg proc area at time of surgery?: No EBL: 50-100
--- NOTE | 2018-10-19 13:40 | PDMN ---
Medical Necessity Medical necessity: Pt meets IP criteria as of 10/19/2018 per and [facility] S-700 ( revision of TKA); Medicare IP only procedure
[2018-10-19] MEDS: ACETAMINOPHEN 325 MG TAB PO SCH ×2 (14:12→18:02)
[2018-10-19] MEDS ORDERED: IRBESARTAN 150 MG TAB PO ONE (14:15)
--- NOTE | 2018-10-19 15:56 | ASMTCMCOM ---
CM Note CM Note Notes: Pt in for R TKA revision. Today PT rec home/outpatient. Pt reports she feels safe with d/c home with assist and defer to MD on when to go back to outpatient PT. Anticipate pt will d/c when medically stable. CM available if MD does want to rec [facility]. Date Signed: 10/19/2018 03:55 PM Electronically Signed By:DANIEL Allan
[2018-10-19] MEDS: NEBIVOLOL HCL 5 MG TAB PO SCH (16:51)
[2018-10-19] MEDS: ceFAZolin 2 GM/DEXTROSE 100 ML IV SCH (16:52)
[2018-10-19] MEDS ORDERED: hydrALAZINE 20 MG/ML VIAL IVP ONE (18:00)
[2018-10-19] MEDS: SENNOSIDES/DOCUSATE SODIUM TAB PO SCH (20:43)
[2018-10-19] MEDS: TERAZOSIN HCL 5 MG CAP PO SCH (20:43)
[2018-10-19] MEDS: CYCLOBENZAPRINE 10 MG TAB PO PRN (20:43)
[2018-10-19] MEDS: ASPIRIN 81 MG CHEWABLE TAB PO SCH (20:43)
[2018-10-19] MEDS: FAMOTIDINE 20 MG TAB PO SCH (20:43)
[2018-10-19] MEDS: oxyCODONE IR 5 MG TAB PO PRN (22:15)
[2018-10-20] MEDS: ceFAZolin 2 GM/DEXTROSE 100 ML IV SCH (00:42)
[2018-10-20] MEDS: ACETAMINOPHEN 325 MG TAB PO SCH ×5 (00:42→23:42)
[2018-10-20] MEDS: TEMAZEPAM 15 MG CAP PO PRN ×2 (00:43→23:42)
[2018-10-20] MEDS: oxyCODONE IR 5 MG TAB PO PRN ×2 (05:19→21:24)
[2018-10-20 06:44] LABS: PLATELET COUNT 520 10^3/uL (150-400)
[2018-10-20] MEDS: NEBIVOLOL HCL 5 MG TAB PO SCH (09:14)
[2018-10-20] MEDS: SENNOSIDES/DOCUSATE SODIUM TAB PO SCH ×2 (09:15→21:24)
[2018-10-20] MEDS: FAMOTIDINE 20 MG TAB PO SCH ×2 (09:15→21:25)
[2018-10-20] MEDS: IRBESARTAN 150 MG TAB PO SCH (09:15)
[2018-10-20] MEDS: ASPIRIN 81 MG CHEWABLE TAB PO SCH ×2 (09:15→21:25)
--- NOTE | 2018-10-20 15:56 | SOAPPROG ---
SOAP Progress Note Assessment/Plan: Assessment: .; Patient is doing well POD 1 R TKA revision due to periprosthetic fracture pain is well controlled HTN: pateint has been working with medical coding auditor at [facility] to improve BP control and manage hyponatremia hyponatremia: 132 today, patient has been working with medical coding auditor at [facility] to modify BP meds and improve hyponatremia WBAT with FWW for 6 weeks, recommend hinged knee brace while walking and while sleeping until patient is seen in Dr. Nguyen's office. may take breaks throughout the day VTE ppx: recommend aspirin 81 mg BID for 4 weeks Anemia: patient h/h stable compared to preop. recommend monitoring closely for lightheadedness. CLL: patient was recently diagnosed with CLL by pathologist after first TKA 2 weeks ago. Patient has been notified and will follow up with hemonc postop. d/c planning: d/c to home most likely tomorrow. patient has great family support. Plan: 10/20/18 15:51 10/20/18 15:56 Subjective: patient is doing well, mild ain, denies SOB,chest pain and n/v Objective: Vital Signs Temp Pulse Resp BP Pulse Ox 36.3 C 70 14 175/81 H 97 10/20/18 15:27 10/20/18 15:27 10/20/18 15:27 10/20/18 15:27 10/20/18 15:27 Laboratory Results 10/20/18 05:56 10/20/18 05:56 10/19/18 10/20/18 10/21/18 05:59 05:59 05:59 Intake Total 1250 Output Total 1060 250 Balance 190 -250 RLE: incision dressing is clean and dry, NVI, +pf/df ICD10 Worksheet Patient Problems: Problems Problem Status Onset Chest pain Acute Primary localized osteoarthritis of right knee Acute
[2018-10-20] MEDS ORDERED: hydrALAZINE 20 MG/ML VIAL IVP ONE (17:15)
[2018-10-20] MEDS: TERAZOSIN HCL 5 MG CAP PO SCH (21:24)
[2018-10-20] MEDS: CYCLOBENZAPRINE 10 MG TAB PO PRN (21:25)
[2018-10-21 04:52] LABS: PLATELET COUNT 476 10^3/uL (150-400)
[2018-10-21] MEDS: ACETAMINOPHEN 325 MG TAB PO SCH (06:11)
[2018-10-21 07:40] VITALS: BP 172/87
[2018-10-21] MEDS: SENNOSIDES/DOCUSATE SODIUM TAB PO SCH (08:59)
[2018-10-21] MEDS: IRBESARTAN 150 MG TAB PO SCH (08:59)
[2018-10-21] MEDS: ASPIRIN 81 MG CHEWABLE TAB PO SCH (09:00)
[2018-10-21] MEDS: FAMOTIDINE 20 MG TAB PO SCH (09:00)
[2018-10-21] MEDS: NEBIVOLOL HCL 5 MG TAB PO SCH (09:00)
--- NOTE | 2018-10-21 11:40 | SOAPPROG ---
SOAP Progress Note Assessment/Plan: Assessment: .; Patient is doing well POD 2 R TKA revision due to periprosthetic femur fracture pain is well controlled HTN: pateint has been working with veterinary technician assistant at [facility] to improve BP control and manage hyponatremia hyponatremia: 132 today, patient has been working with veterinary technician assistant at [facility] to modify BP meds and improve hyponatremia WBAT with FWW for 6 weeks, recommend hinged knee brace while walking until patient is seen in Dr. Nguyen's office. while resting or sleeping, recommend patient take the knee brace off. VTE ppx: recommend aspirin 81 mg BID for 4 weeks Anemia: patient h/h stable compared to preop. recommend monitoring closely for lightheadedness. CLL: patient was recently diagnosed with CLL by pathologist after first TKA 2 weeks ago. Patient has been notified and will follow up with hemonc postop. d/c planning: d/c to home today. patient has great family support. Plan: 10/20/18 15:51 10/20/18 15:56 10/21/18 11:39 Subjective: patient is doing well, denies SOB, chest pain and N/V Objective: Vital Signs Temp Pulse Resp BP Pulse Ox 36.5 C 69 15 172/87 H 92 10/21/18 07:39 10/21/18 09:00 10/21/18 07:39 10/21/18 09:00 10/21/18 07:39 Laboratory Results 10/21/18 04:17 10/21/18 04:17 10/20/18 10/21/18 10/22/18 05:59 05:59 05:59 Intake Total 1250 350 Output Total 1060 550 350 Balance 190 -200 -350 RLE: incision dressing is clean and dry, NVI, +pf/df ICD10 Worksheet Patient Problems: Problems Problem Status Onset Periprosthetic fracture around internal prosthetic right knee joint Acute Status post revision of total replacement of right knee Acute Chest pain Acute Primary localized osteoarthritis of right knee Acute
--- NOTE | 2018-10-21 17:12 | ASMTDCNOTE ---
Case Management Discharge Discharge Order Complete? Answers: Yes Discharge Comments Notes: Per chart, patient discharged home independent with support from . Date Signed: 10/21/2018 05:12 PM Electronically Signed By:Albertina Carias
--- NOTE | 2018-10-22 09:55 | POSTANESTH ---
Post Anesthetic Evaluation Cardiovascular Status: Normal, Stable Respiratory Status: Normal, Stable Level of Consciousness/Mental Status: Can Participate in Eval Pain Control: Adequate, Prn Tx Ordered Nausea/Vomiting Control: Adequate, Prn Tx Ordered Complications Possibly Related to Anesthesia: None Noted
--- NOTE | 2018-10-24 07:54 | GOP ---
[f rep st] OPERATIVE REPORT DATE OF OPERATION: 10/19/2018 SURGEON: Bety Nguyen MD WOOL CLASSER: Brenda Lopez PA-C. PREOPERATIVE DIAGNOSIS: Right knee right femoral periprosthetic fracture. POSTOPERATIVE DIAGNOSIS: Right knee right femoral periprosthetic fracture. PROCEDURE PERFORMED: Total knee revision component. FINDINGS: ESTIMATED BLOOD LOSS: Minimal. INDICATIONS: The patient is a 77-year-old female who underwent a right total knee arthroplasty appro ximately two weeks ago. Patient had a mild increase in pain. She had a fall one day after surgery a nd was seen in the clinic and noted to have of her femoral component with a fem oral condyle fracture. Risks and benefits were discussed with the patient for revision surgery, and informed consent was obtained. DESCRIPTION OF PROCEDURE: anesthesia, a non-sterile tourniquet was placed on . She was then prepped and draped in the usual sterile fashion. Time-out was taken to confirm patient , laterality we then proceeded to elevate the extremity. The tourniquet was inflated to 2 50 mmHg. Incision was made to the prior incision site. We were able to identify the fracture area. The distal femoral component was removed. We had a small amount of bone that was adhered to the fem oral component. This was removed and placed back with bone graft to medial femoral condyle. We plac ed a screw to hold on and stabilize the medial femoral condylar component. We then used reamer to op en up the canal for a TS implant. We then placed a 50 mm stem with a size 3 trial component and a 9 mm polyethylene range of motion. Patient had good stability on flexion and extension. Th e fracture fragment was stable. We then removed the trial components. The incision was copiously ir rigated. We cemented in the size 3 Triathalon TS with a 50 mm stem and placed a final 4 x 9 mm we then copiously irrigated. The incision was closed in layers the patient can weig htbear as tolerated. She will use a hinged knee brace for two weeks after surgery. She will follow up with me in orthopedic clinic. /[id number]/MODL
== END 2018-10-21 12:40 | disposition home or self-care (01) | DRG 470 ==
LOC: F3N 07:06
PROVIDERS: ADMIT Orthopaedic Surgery; ATTEND Orthopaedic Surgery
PROC: 0SRC0L9 Replacement of Right Knee Joint with Medial Unicondylar Synthetic Substitute, Cemented, Open Approach (ICD-10-PCS; principal; 2018-10-19 09:30)
DX: S72.434A Nondisplaced fracture of medial condyle of right femur, initial encounter for closed fracture (principal); M97.11XA Periprosthetic fracture around internal prosthetic right knee joint, initial encounter; W19.XXXA Unspecified fall, initial encounter; Y92.012 Bathroom of single-family (private) house as the place of occurrence of the external cause; I10 Essential (primary) hypertension; M85.80 Other specified disorders of bone density and structure, unspecified site
CPT/HCPCS: 97116-GP; 97161-GP; 97164-GP; 97166-GO; C1713; J0171; J0360; J0690; J1100; J1885; J2250; J2704; J2795; J3370; L1832

== ENCOUNTER → 2018-11-16 | Outpatient (CLI) | payer OTHER | LOC: FIMAGING 13:31 ==

== ENCOUNTER 2018-11-21 10:09 | Inpatient (IN) | payer OTHER ==
[2018-11-21] MEDS ORDERED: fentaNYL 100 MCG/2 ML INJ IVP PRN (10:12)
[2018-11-21] MEDS ORDERED: NALOXONE HCL 0.4 MG/ML INJ IVP PRN (10:12)
[2018-11-21] MEDS ORDERED: FLUMAZENIL 0.5 MG/5 ML MDV IVP PRN (10:12)
[2018-11-21] MEDS ORDERED: MIDAZOLAM 2 MG/2 ML VIAL IVP PRN (10:12)
[2018-11-21] MEDS ORDERED: NS 1,000 ML IV SCH ×2 (10:15→19:30)
[2018-11-21 11:24] LABS: INR 1.05 (0.83-1.16); PROTIME(PATIENT) 13.3 SEC (12.0-15.0)
--- NOTE | 2018-11-21 12:08 | PDGENHP ---
History & Physical Chief Complaint: RUL NODULE History of Present Illness: GROWING RUL NODULE WITH SPICULATION. TISSUE DIAGNOSIS NEEDED. Pertinent Past, Social, Family History: NON SMOKER. S/P RT KNEE SURGERY 5 WEEKS AGO. Relevant Physical Exam: IN NO DISTRESS. Cardiorespiratory Assessment: RRR, CTA
--- NOTE | 2018-11-21 12:09 | PDPROPOC ---
Sedation Plan of Care Sedation Plan of Care: vital signs stable, mental status noted, patient educated of risks, benefits, alternatives, patient can tolerate sedation ASA Classification: ASA 2 Planned drugs: fentanyl, midazolam Mallampati Score: Class 2 Mallampati Reference Image: Patient passed 3-3-2 rule?: Yes
[2018-11-21] MEDS ORDERED: LIDOCAINE 1% 300 MG/30 ML SDV ONE ×2 (12:22→20:02)
--- NOTE | 2018-11-21 13:40 | PDRADPN ---
Radiology Procedure Note Date of Procedure: 11/21/18 Radiologist: Maribel Britton Anesthesia: IV Sedation Pre-op Diagnosis: RML lung nodule Post-op Diagnosis: same Indication: need tissue samling for growing nodule with spiculation Procedure: CT guided lung nodul biopsy Finding(s): target sampled. small PTX Inf/Abcess present in the surg proc area at time of surgery?: No
[2018-11-21] MEDS ORDERED: oxyCODONE IR 5 MG TAB ONE (14:17)
[2018-11-21] MEDS ORDERED: oxyCODONE IR 5 MG TAB PO PRN (14:25)
[2018-11-21] MEDS: ONDANSETRON 4 MG/2 ML VIAL IVP PRN ×2 (16:19→18:13)
[2018-11-21] MEDS ORDERED: IOPAMIDOL (ISOVUE 370) 100 ML BTL IV ONE (19:05)
[2018-11-21] MEDS ORDERED: ACETAMINOPHEN 325 MG TAB PO PRN (19:29)
[2018-11-21] MEDS ORDERED: HYDROmorphONE/DILAUDID 1 MG/ML INJ IVP PRN (19:29)
[2018-11-21] MEDS ORDERED: ONDANSETRON 4 MG/2 ML VIAL IVP PRN (19:29)
[2018-11-21] MEDS ORDERED: PROMETHAZINE HCL 25 MG/ML INJ IVP PRN (19:29)
[2018-11-21] MEDS ORDERED: ONDANSETRON DISINTEGRATING 4 MG TAB PO PRN (19:29)
--- NOTE | 2018-11-21 19:46 | PDCONSULT ---
Thermodynamic Physicist Note: 77 y/o female s/p RML lung biopsy earlier today with moderate right hemothorax on subsequent post procedural imaging PMH: R TKA 5 weeks ago non-smoker NKDA/intolerant of Percocet SH: / and son at bedside ROS: neg hemoptysis, no syncope feels a little woozy PE: thin elderly female in NAD HEENT: no JVD, no tracheal deviation, no crepitus Lungs: diminished breath sounds right CVS: RRR CXR/CT reviewed with patient's and son Imp: right hemothorax s/p biopsy suspicious nodule RML, path pending Rec: right closed tube thoracostomy procedure, risks and expected recovery discussed informed consent was obtained. Bárbara Healy MD, FACS
[2018-11-21] MEDS ORDERED: fentaNYL 100 MCG/2 ML INJ ONE (20:13)
--- NOTE | 2018-11-21 20:58 | POSTOPPROG ---
Post Op Note Date of Operation: 11/21/18 Surgeon: Jam Healy (, FACS) Anesthesia: Local (Specify) Pre-op Diagnosis: right hemothorax Procedure: right closed tube thoracostomy Findings: 1200 ml dark liquid blood evacuated Inf/Abcess present in the surg proc area at time of surgery?: No EBL: Greater than 1000 Complications: none Drains: Other (#[address])
[2018-11-21] MEDS ORDERED: NS 500 ML IV ONE (20:59)
[2018-11-21] MEDS ORDERED: TRANEXAMIC ACID 1,000 MG in NS 100 ML IV ONE (21:00)
[2018-11-21] MEDS ORDERED: traMADol 50 MG TAB PO PRN (23:09)
--- NOTE | 2018-11-21 23:25 | PDGENHP ---
History and Physical - Chief Complaint post lung biopsy with e/o hemothorax - History of Present Illness 77 yo F w/ hx of spiculated lung nodule concerning for malignancy here for routine lung biopsy. Post bx she was noted to have expected pulmonary contusion and small pneumothorax that was not thought to require CT or other intervention. She was continued to be monitored in PACU and repeat CXR 4 hours post procedure then concerning for new moderate pleural effusion concerning for hemorrhage. She was mildly hypotensive and hypoxic but relatively asymptomatic otherwise. Dr. Britton at that time felt it would be appropriate to have patient undergo CTA to eval for active arterial bleed. There was no e/o active bleed and imaging appeared most c/w parenchymal bleed rather than disruption of intercostal artery. H/h was noted to drop significantly. Dr. Healy was consulted and he placed a large bore chest tube, draining 1.2L of blood. Prior to this procedure on evaluation of patient she noted back pain where the needle went in for the biopsy and some shortness of breath but no other complaints. Her and son present at bedside were concerned that she minimizes complaints around pain as she is afraid that if she takes pain meds she will become addicted. It should be noted that 5 weeks ago patient underwent a right total knee. History Information - Allergies/Home Medication List Allergies/Adverse Reactions: No Known Allergies Allergy (Verified 09/25/18 14:22) Home Medications: Nebivolol HCl [Bystolic 5 mg (*)] 2.5 mg PO DAILY 09/21/18 [Last Taken 11/21/18] Acetaminophen [Tylenol ES 500 mg (*)] 500 mg PO DAILY 10/19/18 [Last Taken 11/20] Alendronate Sodium [Fosamax 70 MG (*)] 70 mg PO DODGE@0700 10/19/18 [Last Taken 12/04] Irbesartan [Avapro] 300 mg PO DAILY 10/19/18 [Last Taken 11/21/18] Terazosin HCl 10 mg PO HS 11/21/18 [Last Taken 11/20/18] I have personally reviewed and updated: family history, medical history, social history, surgical history - Past Medical History hypertension Additional medical history: osteoporosis. hepatic cyst. hx of Lyme disease - Surgical History Additional surgical history: R TKA 5 weeks ago - Family History Positive for: non-pertinent - Social History Smoking Status: Never smoked Alcohol Use: Rarely Drug Use: None Additional social history: , accompanied by her and son who is an MD in [employer] Review of Systems Review of Systems: ROS: 10pt was reviewed & negative except for what was stated in HPI & below Physical Exam Physical Exam: Temp Pulse Resp BP Pulse Ox 36.9 C 60 18 84/50 L 96 11/21/18 18:40 11/21/18 13:30 11/21/18 18:32 11/21/18 18:32 11/21/18 18:32 O2 (L/minute) 2 Constitutional: appears nourished, uncomfortable Eyes: PERRL, anicteric sclera Ears, Nose, Mouth, Throat: moist mucous membranes, hearing normal Cardiovascular: regular rate and rhythym, no murmur, rub, or gallop, No edema Respiratory: reduced air movement, inspiratory crackles, respiratory distress Gastrointestinal: normoactive bowel sounds, soft, non-tender abdomen Genitourinary: no bladder tenderness Skin: warm, normal color Musculoskeletal: full muscle strength Neurologic: AAOx3 Psychiatric: interacting appropriately, not anxious, not encephalopathic Lab Data & Imaging Review 11/21/18 21:10 11/21/18 20:05 Hgb 8.0 g/dL (12.6-16.3) L 11/21/18 21:10 Hct 25.0 % (38.0-47.0) L 11/21/18 21:10 Plt Count 319 10^3/uL (150-400) 11/21/18 10:45 PT 13.3 SEC (12.0-15.0) 11/21/18 10:45 INR 1.05 (0.83-1.16) 11/21/18 10:45 APTT 27.7 SEC (23.0-38.0) 11/21/18 10:45 Sodium 131 mEq/L (135-145) L 11/21/18 20:05 Potassium 4.1 mEq/L (3.5-5.2) 11/21/18 20:05 Chloride 104 mEq/L (97-110) 11/21/18 20:05 Carbon Dioxide 21 mEq/l (22-31) L 11/21/18 20:05 Anion Gap 6 mEq/L (6-14) 11/21/18 20:05 BUN 21 mg/dL (7-23) 11/21/18 20:05 Creatinine 0.6 mg/dL (0.6-1.0) 11/21/18 20:05 Estimated GFR > 60 11/21/18 20:05 Glucose 119 mg/dL (70-100) H 11/21/18 20:05 Calcium 7.7 mg/dL (8.5-10.4) L 11/21/18 20:05 Patient ABO/Rh A POSITIVE 11/21/18 20:05 Antibody Screen NEGATIVE 11/21/18 20:05 Visualized and Interpreted Chest x-ray results: Yes Chest X-Ray results: effusion, other (small ptx) Visualized and Interpreted imaging results: Yes Interpretation: chest CTA: no arterial extravasation, large hemothorax Assessment & Plan Assessment: 77 yo F with hx of spiculated lung nodule here for IR guided lung bx with post operative hemothorax # hemothorax: due to parenchymal bleed post IR biopsy, general surgery consulted and placed large bore chest tube and drained 1.2L, will continue to monitor h/h and monitor in ICU # acute hypoxic respiratory failure: with signs of respiratory distress and requiring 2L to maintain o2 sats in the 90s, in the setting of large hemothorax as above, now s/p CT drainage hopefully will continue to improve # lung nodule: s/p biopsy and sent for pathology, patient followed by Dr. Rojas, concerns were initially raised following her TKA at which time path was consistent with lymphoma # recent TKA: performed 5 weeks ago, patient not on any DVT ppx on arrival ( held prior to procedure today apparently), will resume ppx once clear bleeding has stopped # acute blood loss anemia: in the setting of hemothorax as above, continue to trend h/h # htn: BP has been low since arrival, holding her antihypertensives # IP status, high risk with active bleeding and mild hypotension requiring ICU monitoring, > 40 min critical care time spent in review of labs/imaging and coordination of care with other MDs and nursing at bedside Reviewed care plan at length with IR, surgery and patients and son present at bedside.
[2018-11-22 05:11] LABS: PLATELET COUNT 270 10^3/uL (150-400)
[2018-11-22] MEDS: HYDROCODONE/APAP 5/325 TAB PO PRN ×3 (05:45→17:40)
--- NOTE | 2018-11-22 08:15 | GOP ---
[f rep st] OPERATIVE REPORT DATE OF OPERATION: 11/21/2018 SURGEON: Jam Healy MD ANESTHESIA: Local. PREOPERATIVE DIAGNOSIS: 1. Right hemothorax. 2. Status post CT-guided core needle biopsy, right middle lobe tumor nodule. POSTOPERATIVE DIAGNOSIS: 1. Right hemothorax. 2. Status post CT-guided core needle biopsy, right middle lobe tumor nodule. PROCEDURE PERFORMED: Placement of right closed tube thoracostomy. FINDINGS: Approximately 1200 cc of blood free-flowing evacuated from the chest cavity. Postprocedur al chest x-ray shows the chest tube to be in good position with full expansion of the lung and near c omplete evacuation of the hemothorax. INDICATIONS: Patient is a 77-year-old female, who underwent CT-guided biopsy of a right middle lobe nodule that had been enlarging on sequential CTs earlier in the day. She returned with increasing ch est discomfort and chest x-ray showed a hemothorax. CT angiogram did not identify a ready source, bu t the amount of blood had become significant at this point. She was admitted to the intensive care [facility]. Surgical consultation was requested for chest tube placement. I discussed the procedure with barbra chiang patient, her , and her son, and obtained informed consent before proceeding. DESCRIPTION OF PROCEDURE: The right chest wall was prepped and draped in usual fashion using sterile technique and a barrier set. Before proceeding, a time-out identification of the patient was perfor med. 1% lidocaine plain was used to infiltrate the skin and subcutaneous tissues overlying the 5th interco stal space in the midaxillary line. A 1.5 cm transverse incision was made over the rib and a blunt P gina clamp used to dissect down through the serratus muscle and intercostal muscle, and the pleural sp agata was punctured with the blunt tip of the clamp. A 32-Tamazight chest tube was threaded through the t horacostomy incision into the chest and approximately 300-400 cc of blood came through the thoracosto my incision onto the field. The remainder of the blood was drained into a Pleur-evac. Chest tube wa s advanced and secured to the skin with 0 silk suture. Sterile dressings were applied. The patient drained approximately 800 cc of blood immediately into the Pleur-evac device, making the total approx imately 3854-3025 cc of blood evacuated. The patient tolerated the procedure well. COMPLICATIONS: None. /[id number]/MODL
--- NOTE | 2018-11-22 10:19 | PDMN ---
Medical Necessity Medical necessity: Pt meets IP criteria per MD & MCG M-540 Pleural Effusion; est los >2 mn for eval/tx of hemothorax s/p lung biopsy w/acute hypoxic respiratory failure, active bleeding & mild hypotension; requiring close SDU monitoring & Surgery consult w/chest tube placement; hx lung nodule concerning for malignancy, recent TKA; per H&P & order 11/21/18
--- NOTE | 2018-11-22 14:22 | HOSPPROG ---
Hospitalist Progress Note Assessment/Plan: 77yo F w h/o lymphoma here w postprocedure hemothorax hemothorax: 2/2 bx s/p large bore chest tube currently on suction w expanded lung continue suction overnight cxr in AM ABLA: 2/2 above s/p 1 unit lymphoma: outpt management proph: scd's spiculated nodule: path pending Subjective: case d/w dr ralph. AM cxr w no pneumothorax, minimal effusion ( Interp by me) Objective: Vital Signs Temp Pulse Resp BP Pulse Ox 36.7 C 80 20 114/55 L 93 11/22/18 11:58 11/22/18 14:00 11/22/18 14:00 11/22/18 14:00 11/22/18 14:00 Laboratory Results 11/22/18 12:15 11/22/18 04:20 11/21/18 11/22/18 11/23/18 05:59 05:59 05:59 Intake Total 4453 Output Total 450.0 Balance 4003.0 PT 13.3 SEC (12.0-15.0) 11/21/18 10:45 INR 1.05 (0.83-1.16) 11/21/18 10:45 - Physical Exam Constitutional: no apparent distress, appears nourished Eyes: PERRL, anicteric sclera Ears, Nose, Mouth, Throat: moist mucous membranes, hearing normal Cardiovascular: regular rate and rhythym, no murmur, rub, or gallop Respiratory: no respiratory distress, No no rales or rhonchi Gastrointestinal: normoactive bowel sounds, soft, non-tender abdomen Genitourinary: no bladder fullness, No johnson in urethra Skin: warm, normal color Musculoskeletal: full muscle strength Neurologic: AAOx3 ICD10 Worksheet Patient Problems: Problems Problem Status Onset Chest pain Acute Periprosthetic fracture around internal prosthetic right knee joint Acute Primary localized osteoarthritis of right knee Acute Status post revision of total replacement of right knee Acute
--- NOTE | 2018-11-22 15:28 | ASMTCMCOM ---
CM Note CM Note Notes: Patient admitted with Hemothorax, s/p biopsy - path pending. Attempted to meet with patient to discuss any possible needs, patient sleeping soundly. CM will follow-up when able. Plan: TBD Date Signed: 11/22/2018 03:28 PM Electronically Signed By:Joi Sandoval RN
--- NOTE | 2018-11-22 18:38 | GCON ---
[f rep st] CONSULTATION PULMONARY CRITICAL CARE CONSULTATION DATE OF CONSULTATION: 11/21/2018 REASON FOR CONSULTATION: Hemopneumothorax. HISTORY: The patient is a very pleasant 77-year-old. She had a percutaneous lung biopsy yesterday. This was complicated by a hemopneumothorax. A chest tube was placed by Dr. Healy. Approximately, 12 00 cc of bloody fluid was removed from the right chest. The chest tube was placed to suction. She w as admitted to the intensive care unit. Hemoglobin dropped to 6.8. She was transfused with 1 unit o f packed red blood cells. Recent history is pertinent for knee surgery 5 weeks ago. Apparently, pathology revealed some abnorm al lymphatic cells, and she was felt to possibly have lymphoma. She was referred to Dr. Rojas. He ordered a CT scan of the chest, which showed a nodule with some spiculation, suspicious for possible malignancy. Thus, the biopsy yesterday. The patient is a never smoker. Course in the ICU has been unremarkable. She has some residual right-sided chest pain, perhaps relat ed to the tube. Hematocrit is stable. Vital signs are stable. PAST MEDICAL HISTORY: As outlined above. There is a history of systemic hypertension. She is osteo penic, on Fosamax. SOCIAL HISTORY: , supportive family, never smoker. Significant alcohol negative. FAMILY HISTORY: Noncontributory. REVIEW OF SYSTEMS: A 10-point review of systems is negative except as mentioned in the HPI and Past Medical History. DRUG ALLERGIES: No known drug allergies. PHYSICAL EXAMINATION: GENERAL: A pleasant woman, who is resting comfortably in bed. She is in no d istress. VITAL SIGNS: Oxygen is in place at 2 L with saturations 93%. Blood pressure is 114/55, he art rate 80, with sinus rhythm on the monitor. She is afebrile. HEENT: Unremarkable for lymphadeno luzma, thyromegaly, or jugular venous distention. PULMONARY: The chest reveals decreased breath [place] nds bilaterally with some rales on the right. No pleural rub is appreciated. She has no rhonchi and no wheezing. HEART: Regular in rate and rhythm without significant murmur. There are no gallops. ABDOMEN: Soft, nontender. Bowel sounds are present. EXTREMITIES: Unremarkable for significant ed surinder, cords, or tenderness. NEUROLOGIC: Examination is intact. LABORATORY: Hematocrit is 32, up slightly from 30 this morning. PT and PTT are normal. Sodium is 1 33, potassium 4.7, BUN 23, with a creatinine of 0.7. Glucose is 123. Liver function studies are nor mal. Albumin is 3.0. This morning's chest x-ray shows improved aeration of the right chest after evacuation of the blood. There is a probable small right apical pneumothorax and some increased densities, probably atelectas is, related to the lower lobes bilaterally. Pathology from her biopsy is pending. ASSESSMENT: 1. Hemopneumothorax. This is post percutaneous lung biopsy of a lung nodule. Bleeding likely has s topped. I do not see an air leak currently. Chest tube will be left in today with Pleur-evac hooked to suction. 2. Pulmonary nodule. 3. History of possible lymphoma. 4. Acute blood loss anemia. Hematocrit is stable at 32 after 1 unit of packed red blood cells. 5. Metabolic: Mild hyponatremia. Will follow. PLAN AND RECOMMENDATIONS: The patient will be kept in the intensive care unit on step-down status. Chest x-ray on suction will be repeated in the morning. If this looks good, the tube will be clamped , and a chest x-ray repeated several hours later. If the followup chest x-ray continues to look good , the chest tube can be pulled. I will discuss this with surgical coverage for Dr. Healy tomorrow. C BC and laboratory will be followed. All of the above was discussed with the patient. /[id number]/MODL
[2018-11-22] MEDS ORDERED: TERAZOSIN HCL 5 MG CAP PO SCH (21:00)
[2018-11-23] MEDS: HYDROCODONE/APAP 5/325 TAB PO PRN ×2 (03:21→08:00)
[2018-11-23 05:54] LABS: PLATELET COUNT 219 10^3/uL (150-400)
--- NOTE | 2018-11-23 07:31 | SOAPPROG ---
SOAP Progress Note Assessment/Plan: Assessment: s/p evacuation right hemothorax following RML nodule biopsy path report shows benign lung parenchyma small pneumo on suction Plan: CT placed to [id number] will repeat CXR and possibly pull tube today Bárbara Healy MD, FACS 11/23/18 07:29 Subjective: resting comfortably Objective: Vital Signs Temp Pulse Resp BP Pulse Ox 36.8 C 82 16 112/53 L 94 11/23/18 03:09 11/23/18 03:09 11/23/18 03:09 11/23/18 03:09 11/23/18 03:09 Laboratory Results 11/23/18 04:50 11/23/18 04:50 11/22/18 11/23/18 11/24/18 05:59 05:59 05:59 Intake Total 4453 1600 Output Total 450.0 250 Balance 4003.0 1350 PT 13.3 SEC (12.0-15.0) 11/21/18 10:45 INR 1.05 (0.83-1.16) 11/21/18 10:45 - Pending Discharge Pending Discharge Within 24 Hours: No Pending Discharge Within 48 Hours: Yes Pending Discharge Date: 11/25/18 Pending Discharge Time: 11:00 Physical Exam - Physical Exam General Appearance: no apparent distress Respiratory: lungs clear, decreased breath sounds, other (CT output 125ml, no air leak) Cardiac/Chest: regular rate, rhythm Abdomen: non-tender, soft Neuro/Psych: alert, normal mood/affect ICD10 Worksheet Patient Problems: Problems Problem Status Onset Chest pain Acute Periprosthetic fracture around internal prosthetic right knee joint Acute Primary localized osteoarthritis of right knee Acute Status post revision of total replacement of right knee Acute
[2018-11-23] MEDS ORDERED: NEBIVOLOL HCL 5 MG TAB PO SCH (09:00)
[2018-11-23 11:40] VITALS: BP 128/73
--- NOTE | 2018-11-23 12:14 | HOSPPROG ---
Hospitalist Progress Note Assessment/Plan: 77yo F w h/o lymphoma here w postprocedure hemothorax hemothorax: resolved chest tube out ABLA: 2/2 above s/p 1 unit lymphoma: outpt management proph: scd's spiculated nodule: path neg dispo: home today > 30 minutes Subjective: case d/w dr ralph. chest tube out. no pneumothorax Objective: Vital Signs Temp Pulse Resp BP Pulse Ox 36.8 C 74 16 128/73 H 92 11/23/18 11:35 11/23/18 11:35 11/23/18 11:35 11/23/18 11:35 11/23/18 11:35 Laboratory Results 11/23/18 04:50 11/23/18 04:50 11/22/18 11/23/18 11/24/18 05:59 05:59 05:59 Intake Total 4453 1600 Output Total 450.0 250 Balance 4003.0 1350 PT 13.3 SEC (12.0-15.0) 11/21/18 10:45 INR 1.05 (0.83-1.16) 11/21/18 10:45 - Physical Exam Constitutional: no apparent distress, appears nourished Eyes: PERRL, anicteric sclera Ears, Nose, Mouth, Throat: moist mucous membranes, hearing normal Cardiovascular: regular rate and rhythym, no murmur, rub, or gallop Respiratory: no respiratory distress, no rales or rhonchi Gastrointestinal: normoactive bowel sounds, soft, non-tender abdomen Genitourinary: no bladder fullness, No johnson in urethra Skin: warm, normal color Musculoskeletal: full muscle strength ICD10 Worksheet Patient Problems: Problems Problem Status Onset Chest pain Acute Periprosthetic fracture around internal prosthetic right knee joint Acute Primary localized osteoarthritis of right knee Acute Status post revision of total replacement of right knee Acute
--- NOTE | 2018-11-23 13:10 | PDHOMEO2F ---
Home Oxygen Face to Face Home Orders: I certify that a physician or a nurse practitioner or physician's assistant corporation counsel has had a [id number] encounter with this patient on the date of this order due to the diagnosis listed, which relates to the primary reason the patient requires home oxygen. Alternative treatments have been tried, or considered, and deemed ineffective. It is anticipated that supplemental oxygen will result in improvement with treatment. Home oxygen qualifying diagnosis: Atelectasis, Pulmonary Hemorrhage, Pneumothorax SpO2 on room air (%): 86 Frequency of home oxygen needed: continuous Home oxygen liters per minute: 2 Home oxygen delivery device: nasal cannula Concentrator: Yes E-tanks for mobility and back up: Yes If ordering portable O2, is the patient mobile in the home?: Yes I certify that, based on these findings, the home oxygen is medically necessary for this patient for the following length of time. Length of time home oxygen needed: 1 month
--- NOTE | 2018-11-23 13:39 | ASMTLACE ---
LACE Length of stay for Answers: 2 days current admission Acuity / Level of Answers: Yes Care: Did the patient have an inpatient admission? Comorbidities - select Answers: Other Notes: HTN all that apply # of Emergency department Answers: 0 visits in the last 6 months Score: 6 Date Signed: 11/23/2018 01:38 PM Electronically Signed By:Joi Sandoval RN
--- NOTE | 2018-11-23 13:41 | ASMTCMCOM ---
CM Note CM Note Notes: Met with patient and son re: d/c plan of care. Patient will d/c home with O2, no other needs identified, lives at home with supportive and son. Plan: Independent Date Signed: 11/23/2018 01:40 PM Electronically Signed By:Joi Sandoval RN
--- NOTE | 2018-11-23 20:36 | GDS ---
[f rep st] DISCHARGE SUMMARY DISCHARGE DIAGNOSES: 1. Spiculated lung nodule status post biopsy with negative pathology, concern for false negative. 2. Iatrogenic hemothorax. 3. Pneumothorax. 4. Hypertension. 5. Acute blood loss anemia. HISTORY AND HOSPITAL COURSE: Please see admission history and physical by Dr. Maribel Britton, as well as Dr. Stevenson Bearden. The patient presented for an elective lung biopsy in . She developed some post procedure dyspnea. Repeat chest x- ray showed an enlarging pleural effusion. She had a large bore chest tube placed by Dr. Jam Healy, and about 1500 cc of blood came out. The patient received a unit of packed cells. She had a chest tube overnight. It was placed on water seal on the day of discharge for several hours. Chest x-ray showed no recurrent pneumothorax, so chest tube was pulled. Again, chest x-ray showed no recurrent pneumothorax. She was discharged home. I discussed the case with her son, who is a geriatric physician in [place]. The patient's pathology is negative. There was concern that it is a false negative. I relayed this to her ordering physician, Dr. Diego Rojas. /[id number]/MODL MTDD
== END 2018-11-23 14:33 | disposition home or self-care (01) | DRG 206 ==
LOC: FIMAGING 10:09 → F2N 17:42 → F3E 11-22 16:27
PROVIDERS: ADMIT Internal Medicine; ATTEND Internal Medicine Hematology & Oncology
PROC: 0BBK3ZX Excision of Right Lung, Percutaneous Approach, Diagnostic (ICD-10-PCS; 2018-11-21)
PROC: 0B9N30Z Drainage of Right Pleura with Drainage Device, Percutaneous Approach (ICD-10-PCS; principal; 2018-11-21 12:55)
PROC: 30233N1 Transfusion of Nonautologous Red Blood Cells into Peripheral Vein, Percutaneous Approach (ICD-10-PCS; 2018-11-22)
DX: J95.89 Other postprocedural complications and disorders of respiratory system, not elsewhere classified (principal); J94.2 Hemothorax; J95.811 Postprocedural pneumothorax; D62 Acute posthemorrhagic anemia; R91.1 Solitary pulmonary nodule; I10 Essential (primary) hypertension; Z96.651 Presence of right artificial knee joint
CPT/HCPCS: J2250; J2310; J2405; J3010; P9016; Q9967

== ENCOUNTER → 2018-12-11 | Outpatient (CLI) | payer OTHER ==
[~2018-12-11] MED LIST changes: +LIDOCAINE 1% 300 MG/30 ML SDV ONE; -ROPIVACAINE 0.2% 80 MG, EPINEPHrine 0.2 MG, KETOROLAC TROMETHAMINE 30 MG in SYRINGE 0 ML IU ONE; -TRANEXAMIC ACID 3,000 MG in NS (SYRINGE) 50 ML IRR ONE
== END ==
LOC: FIMAGING 10:34
PROVIDERS: ATTEND Internal Medicine
PROC: 0W993ZZ Drainage of Right Pleural Cavity, Percutaneous Approach (ICD-10-PCS; principal; 2018-12-11)
DX: J94.2 Hemothorax (principal)

== ENCOUNTER → 2018-12-14 | Outpatient (CLI) | payer OTHER | LOC: FIMAGING 11:08 | PROVIDERS: ATTEND Internal Medicine | DX: J90 Pleural effusion, not elsewhere classified (principal) ==

== ENCOUNTER → 2018-12-19 | Outpatient (CLI) | payer OTHER | LOC: FIMAGING 10:33 | PROVIDERS: ATTEND Internal Medicine | DX: J90 Pleural effusion, not elsewhere classified (principal); J98.4 Other disorders of lung; Z87.09 Personal history of other diseases of the respiratory system ==

== ENCOUNTER 2018-12-20 10:03 | Inpatient (IN) | payer OTHER ==
--- NOTE | 2018-12-20 08:45 | PDANEPAE ---
ANE History of Present Illness hemothorax ANE Past Medical History - Cardiovascular History Hx Hypertension: Yes Hx Arrhythmias: No Hx Chest Pain: No Hx Coronary Artery / Peripheral Vascular Disease: No Hx CHF / Valvular Disease: No Hx Palpitations: No Cardiovascular History Comment: leaky heart valves - Pulmonary History Hx COPD: No Hx Asthma/Reactive Airway Disease: No Hx Recent Upper Respiratory Infection: No Hx Oxygen in Use at Home: No Hx Sleep Apnea: No - Neurologic History Hx Cerebrovascular Accident: No Hx Seizures: No Hx Dementia: No - Endocrine History Hx Diabetes: No Hypothyroid: No Hyperthyroid: No Obesity: no - Renal History Hx Renal Disorders: No - Liver History Hx Hepatic Disorders: No - Neurological & Psychiatric Hx Hx Neurological and Psychiatric Disorders: No - Cancer History Hx Cancer: No - Congenital Disorder History Hx Congenital Disorders: No - GI History GERD: no Hx Gastrointestinal Disorders: No - Other Health History Other Health History: none - Chronic Pain History Chronic Pain: No - Surgical History Prior Surgeries: lung biopsy 2019. R TKA 10/03/18. right knee scope 8/10 yrs ago ANE Review of Systems Review of systems is: negative Review of Systems: ANE Patient History - Allergies Allergies/Adverse Reactions: No Known Allergies Allergy (Verified 09/25/18 14:22) - Home Medications Home medications: home medication list seen and reviewed Home Medications: Nebivolol HCl [Bystolic 5 mg (*)] 2.5 mg PO DAILY 09/21/18 [Last Taken 11/21/18] Acetaminophen [Tylenol ES 500 mg (*)] 500 mg PO DAILY 10/19/18 [Last Taken 11/20] Alendronate Sodium [Fosamax 70 MG (*)] 70 mg PO DODGE@0700 10/19/18 [Last Taken 12/04] Irbesartan [Avapro] 300 mg PO DAILY 10/19/18 [Last Taken 11/21/18] Terazosin HCl 10 mg PO HS 11/21/18 [Last Taken 11/20/18] - Smoking Hx Smoking Status: Never smoked - Family Anes Hx Family Hx Anesthesia Complications: none ANE Physical Exam - Airway Neck exam: FROM Mallampati Score: Class 2 Mouth exam: normal dental/mouth exam - Pulmonary Pulmonary: no respiratory distress, clear to auscultation - Cardiovascular Cardiovascular: regular rate and rhythym, no murmur, rub, or gallop - ASA Status ASA Status: III ANE Anesthesia Plan Anesthesia Plan: general endotracheal anesthesia Lines/Monitors: arterial line Specialized Airway: double lumen tube
[2018-12-20] MEDS ORDERED: BUPIVACAINE/EPI 0.25% 30 ML SDV ONE (10:09)
[2018-12-20] MEDS ORDERED: ceFAZolin 2 GM/DEXTROSE 100 ML IV ONE (10:37)
[2018-12-20] MEDS ORDERED: LIDOCAINE 1% 2 ML INJ ID PRN (10:37)
--- NOTE | 2018-12-20 11:08 | PDHPUP ---
History & Physical Update H&P update statement: This history and physical update is based on an assessment of the patient which was completed after admission or registration (within 24 hours), but prior to the surgery/procedure. H&P update: H&P reviewed & patient examined, no change in patient's condition since H&P completed (see paper chart; H/H stable at )
[2018-12-20] MEDS ORDERED: LR 1,000 ML IV ONE ×2 (11:09→11:17)
[2018-12-20] MEDS ORDERED: PROPOFOL 200 MG/20 ML VIAL ONE (11:33)
[2018-12-20] MEDS ORDERED: fentaNYL 250 MCG/5 ML INJ ONE (11:33)
[2018-12-20] MEDS ORDERED: LIDOCAINE 2% 5 ML SDV ONE (11:34)
[2018-12-20] MEDS ORDERED: ROCURONIUM 50 MG/5 ML VIAL ONE (11:34)
[2018-12-20] MEDS ORDERED: MIDAZOLAM 2 MG/2 ML VIAL ONE (11:47)
[2018-12-20] MEDS ORDERED: hydrALAZINE 20 MG/ML VIAL ONE (12:37)
[2018-12-20] MEDS ORDERED: METOPROLOL TARTRATE 5 MG/5 ML INJ ONE (12:37)
[2018-12-20] MEDS ORDERED: ONDANSETRON 4 MG/2 ML VIAL ONE (12:59)
[2018-12-20] MEDS ORDERED: ONDANSETRON 4 MG/2 ML VIAL IVP PRN (13:08)
[2018-12-20] MEDS ORDERED: fentaNYL 2MCG/ML&BUP 0.0625% in 100ML NS EP SCH (13:30)
[2018-12-20] MEDS ORDERED: diphenhydrAMINE 25 MG CAP PO PRN (13:30)
[2018-12-20] MEDS ORDERED: NALOXONE HCL 0.4 MG/ML INJ IVP PRN ×2 (13:30→16:36)
[2018-12-20] MEDS ORDERED: GLYCOPYRROLATE 0.2 MG/1 ML VIAL ONE (13:55)
[2018-12-20] MEDS ORDERED: NEOSTIGMINE METHYLSULFATE 5 MG/5 ML SYR ONE (13:55)
[2018-12-20] MEDS ORDERED: ePHEDrine SULFATE 25 MG/5 ML SYR ONE (14:05)
[2018-12-20] MEDS ORDERED: PHENYLEPHRINE HCL 100 MCG/ML SYR ONE (14:35)
[2018-12-20] MEDS ORDERED: ALBUMIN 5% 250 ML BOTTLE IV ONE (15:27)
[2018-12-20] MEDS ORDERED: ACETAMINOPHEN 325 MG TAB PO PRN (15:48)
[2018-12-20] MEDS ORDERED: METOCLOPRAMIDE 10 MG/2 ML VIAL IVP PRN (15:48)
[2018-12-20] MEDS ORDERED: METOCLOPRAMIDE 10 MG TAB PO PRN (15:48)
--- NOTE | 2018-12-20 16:12 | PDMN ---
Medical Necessity Medical necessity: [facility] IP only surgery; thoracotomy w/decortication & lobectomy
[2018-12-20] MEDS ORDERED: HYDROmorphONE/DILAUDID 6 MG/30 ML PCA IV PRN (16:37)
--- NOTE | 2018-12-20 21:30 | SOAPPROG ---
SOAP Progress Note Assessment/Plan: Assessment: epidural catheter displaced when removing drape in OR Plan: catheter removed at bedside, tip intact 12/20/18 21:29 Objective: Vital Signs Temp Pulse Resp BP Pulse Ox 36.5 C 86 17 115/69 98 12/20/18 10:43 12/20/18 19:00 12/20/18 19:00 12/20/18 19:00 12/20/18 19:00 12/19/18 12/20/18 12/21/18 05:59 05:59 05:59 Output Total 115 Balance -115 - Pending Discharge Pending Discharge Within 24 Hours: No Pending Discharge Within 48 Hours: No ICD10 Worksheet Patient Problems: Problems Problem Status Onset Adenocarcinoma of right lung Acute Loculated pleural effusion Acute S/P lobectomy of lung Acute ~12/20/18 S/P thoracotomy Acute ~12/20/18 Trapped lung Acute Chronic anemia Chronic Pulmonary nodule, right Chronic
[2018-12-20] MEDS: ceFAZolin 2 GM/DEXTROSE 100 ML IV SCH (21:38)
[2018-12-21 04:33] LABS: PLATELET COUNT 612 10^3/uL (150-400)
[2018-12-21] MEDS: ceFAZolin 2 GM/DEXTROSE 100 ML IV SCH (04:58)
--- NOTE | 2018-12-21 07:03 | SOAPPROG ---
SOAP Progress Note Assessment/Plan: Assessment: POD#1 RVATS conversion to rt thoracotomy for evacuation of pleural effusion, decortication, and right middle lobectomy w LN sampling Loculated rt pleural effusion s/p complications assoc w perc RML lung nodule bx 1 mo ago - Dense peel confirmed by VATS and decortication with evac of effusion undertaken via thoracotomy. Frozen section of lung nodule positive for adenocarcinoma and wedge bx abandoned in favor of right middle lobectomy as per rec Dr Corbin. Await final path. Lung well expanded early postop. No air leak. Pain well controlled with dilaudid CANDY FEEDER. HTN - Home control with combination therapy. Reintro of regimen as tolerated. Plan: Keep CT to suction (at rest) for 1 more day. Ok to ambulate on water seal. Switch to multimodal analgesia with toradol, tylenol, tramadol. Remove stan and johnson. Mobilize. Tx to SDU. 12/21/18 06:56 Subjective: Comfortable. No acute concerns. Objective: Vital Signs Temp Pulse Resp BP Pulse Ox 36.5 C 77 16 125/57 H 97 12/21/18 02:00 12/21/18 06:00 12/21/18 06:00 12/21/18 06:00 12/21/18 06:00 Laboratory Results 12/21/18 04:20 12/21/18 04:20 12/20/18 12/21/18 12/22/18 05:59 05:59 05:59 Intake Total 1551 Output Total 490 Balance 1061 Epidural cath dislodged during OR drape removal and switched to CANDY FEEDER analgesia. HR, rhythm, BP and sats stable overnoc. Borderline suppl O2 req. Min CTOP. CXR-> no PTX, no undrained effusion. Labs as expected. Physical Exam - Physical Exam General Appearance: alert, no apparent distress Respiratory: crackles (rt base o/w CTA), other (Rt thoracot CDI. CT to pleurovac , serosang drainage, no air leak) Cardiac/Chest: regular rate, rhythm Abdomen: non-tender, soft Skin: warm/dry Extremities: swelling (trace dependent) ICD10 Worksheet Patient Problems: Problems Problem Status Onset Adenocarcinoma of right lung Acute Loculated pleural effusion Acute S/P lobectomy of lung Acute ~12/20/18 S/P thoracotomy Acute ~12/20/18 Trapped lung Acute Chronic anemia Chronic Pulmonary nodule, right Chronic
[2018-12-21] MEDS ORDERED: DC NARCS MISC SCH (09:00)
[2018-12-21] MEDS ORDERED: REGARDING ANTICOAG MISC SCH (09:00)
[2018-12-21] MEDS: KETOROLAC 15 MG/1 ML SDV IVP SCH ×3 (09:54→18:45)
[2018-12-21] MEDS: ACETAMINOPHEN 325 MG TAB PO SCH ×3 (09:55→18:45)
--- NOTE | 2018-12-21 10:37 | ASMTCMCOM ---
CM Note CM Note Notes: Patient is POd #1 R VATS conversion to R thoracotomy for evacuation of PE. She is stable. Normally independent, she lives with her Jitendra. PT/OT evals ordered. Case Management will follow. Date Signed: 12/21/2018 10:36 AM Electronically Signed By:Staci Bajwa RN
[2018-12-21] MEDS: HEPARIN 5,000 UNIT/0.5 ML INJ SC SCH ×2 (14:37→21:31)
[2018-12-21] MEDS: NS 1,000 ML IV SCH (20:00)
[2018-12-21] MEDS ORDERED: IRBESARTAN 75 MG TAB PO SCH (21:00)
[2018-12-22] MEDS: KETOROLAC 15 MG/1 ML SDV IVP SCH ×3 (00:26→11:05)
[2018-12-22] MEDS: ACETAMINOPHEN 325 MG TAB PO SCH ×5 (02:32→23:02)
[2018-12-22] MEDS: NS 1,000 ML IV SCH (04:01)
[2018-12-22] MEDS: HEPARIN 5,000 UNIT/0.5 ML INJ SC SCH ×3 (05:51→21:24)
[2018-12-22] MEDS ORDERED: FUROSEMIDE 40 MG/4 ML VIAL IVP ONE (07:21)
[2018-12-22] MEDS ORDERED: POTASSIUM CL 20 MEQ TAB PO ONE (07:21)
--- NOTE | 2018-12-22 07:27 | SOAPPROG ---
SOAP Progress Note Assessment/Plan: Assessment: POD#2 RVATS conversion to rt thoracotomy for evacuation of pleural effusion, decortication, and right middle lobectomy w LN sampling Loculated rt pleural effusion s/p complications assoc w perc RML lung nodule bx 1 mo ago - Dense peel confirmed by VATS and decortication with evac of effusion undertaken via thoracotomy. Frozen section of lung nodule positive for adenocarcinoma and wedge bx abandoned in favor of right middle lobectomy as per rec Dr Corbin. Await final path. Lung well expanded early postop. No air leak. Pain well controlled with multimodal analgesia. Acute on chronic (hemothorax) blood loss anemia - Preop H/H . No sig intraop blood losses. Dip in postop H/H likely dilutional. Monitor. HTN - Home control with combination therapy. Reintro of regimen as tolerated. Plan: CT to water seal. Stop IVF. Fluid restriction 1500 ml. Lasix 40 mg IV x 1. Cont inc activity as tolerated. Elevate low legs at rest. Tx to PCU. Dispo - Anticipate home +/- C on 12/22/18 07:23 Subjective: Feels well. Improving stamina and mobility. Distressed about 2 lb wt gain and inc ankle swelling. Objective: Vital Signs Temp Pulse Resp BP Pulse Ox 36.7 C 87 15 139/78 H 93 12/21/18 19:38 12/22/18 04:00 12/22/18 04:00 12/22/18 04:00 12/22/18 04:00 Laboratory Results 12/22/18 05:47 12/22/18 05:47 12/21/18 12/22/18 12/23/18 05:59 05:59 05:59 Intake Total 1551 2383 Output Total 490 225 Balance 1061 2158 Stable HR, rhythm and BP. IVF overnoc for low UOP. ? toradol effect. No hypotension. Cr ok. Off O2. Min CTOP. CXR no PTX. Positive fluid balance. Low K and H/H likely dilutional. Physical Exam - Physical Exam General Appearance: alert, no apparent distress Respiratory: crackles (rt sided), other (Rt thoracot CDI. CT to pleurovac, serosang drainage, no inducible air leak) Abdomen: non-tender, soft Skin: warm/dry Extremities: swelling (1-2+ dependent) ICD10 Worksheet Patient Problems: Problems Problem Status Onset Adenocarcinoma of right lung Acute Loculated pleural effusion Acute S/P lobectomy of lung Acute ~12/20/18 S/P thoracotomy Acute ~12/20/18 Trapped lung Acute Chronic anemia Chronic Pulmonary nodule, right Chronic
[2018-12-22] MEDS ORDERED: NEBIVOLOL HCL 5 MG TAB PO SCH (12:00)
[2018-12-22] MEDS ORDERED: MAGNESIUM HYDROXIDE 30 ML UDCUP PO PRN (14:11)
[2018-12-22] MEDS ORDERED: BISACODYL 10 MG SUPP PR PRN (14:11)
[2018-12-22] MEDS: traMADol 50 MG TAB PO PRN (18:55)
[2018-12-22] MEDS ORDERED: IRBESARTAN 150 MG TAB PO SCH (21:00)
[2018-12-22] MEDS ORDERED: SENNOSIDES/DOCUSATE SODIUM TAB PO PRN (21:00)
[2018-12-23] MEDS: ACETAMINOPHEN 325 MG TAB PO SCH (06:34)
[2018-12-23] MEDS: HEPARIN 5,000 UNIT/0.5 ML INJ SC SCH (06:35)
[2018-12-23] MEDS ORDERED: ALENDRONATE SODIUM 70 MG TAB PO SCH (07:00)
--- NOTE | 2018-12-23 08:13 | SOAPPROG ---
SOAP Progress Note Assessment/Plan: Assessment: POD#3 RVATS conversion to rt thoracotomy for evacuation of pleural effusion, decortication, and right middle lobectomy w LN sampling Loculated rt pleural effusion s/p complications assoc w perc RML lung nodule bx 1 mo ago - Dense peel confirmed by VATS and decortication with evac of effusion undertaken via thoracotomy. Frozen section of lung nodule positive for adenocarcinoma and wedge bx abandoned in favor of right middle lobectomy as per rec Dr Corbin. Await final path. Lung well expanded early postop. No air leak. Minimal chest tube drainage. Pain well controlled with multimodal analgesia. Acute on chronic (hemothorax) blood loss anemia - Preop H/H . No sig intraop blood losses. Dip in postop H/H dilutional as appropriate response to fluid restriction and diuresis. HTN - Home control with combination therapy. Reintro of regimen as tolerated. Plan: Remove chest tube. Relax fluid restriction to 2L daily. Lasix 20 mg IV x 1. Inc ARB to home dose of 300 mg tonight. Cont inc activity as tolerated. Dispo - Anticipate home later today. 12/23/18 08:10 Subjective: Improving stamina and mobility. Eager for tube removal and home today. Objective: Vital Signs Temp Pulse Resp BP Pulse Ox 36.7 C 80 20 150/71 H 92 12/23/18 04:00 12/23/18 04:00 12/23/18 04:00 12/23/18 04:00 12/23/18 04:00 Laboratory Results 12/23/18 03:34 12/23/18 03:34 12/22/18 12/23/18 12/24/18 05:59 05:59 05:59 Intake Total 2383 1790 Output Total 225 1475 Balance 2158 315 VSS Off O2 CXR no PTX CTOP below removal criteria Improved labs post diuresis Physical Exam - Physical Exam General Appearance: alert, no apparent distress Respiratory: crackles (rt sided), other (Rt thoracot CDI. Chest tube to pleurovac, mostly serous drainage, no inducible air leak) Cardiac/Chest: regular rate, rhythm Abdomen: non-tender, soft Skin: warm/dry Extremities: swelling (1+ dependent) ICD10 Worksheet Patient Problems: Problems Problem Status Onset Adenocarcinoma of right lung Acute Loculated pleural effusion Acute S/P lobectomy of lung Acute ~04/04/19 S/P thoracotomy Acute ~12/20/18 Trapped lung Acute Chronic anemia Chronic Pulmonary nodule, right Chronic
[2018-12-23 08:36] VITALS: BP 148/85
[2018-12-23] MEDS ORDERED: POTASSIUM CL 10 MEQ TAB PO ONE (09:00)
[2018-12-23] MEDS ORDERED: FUROSEMIDE 20 MG/2 ML VIAL IVP ONE (09:00)
[2018-12-23] MEDS ORDERED: POLYETHYLENE GLYCOL 3350 17 GM PKT PO SCH (09:00)
[2018-12-23] MEDS ORDERED: NEBIVOLOL HCL 5 MG TAB PO SCH (09:00)
--- NOTE | 2018-12-23 09:24 | ASMTCMCOM ---
CM Note CM Note Notes: 12/23/2018 Case Management Note Reviewed chart. PT and OT have cleared pt to return home independent. Anticipating d/c Monday. Case Management d/c poc: independent with follow up as directed. Case Management available if needs change. Date Signed: 12/23/2018 09:24 AM Electronically Signed By:Brenna Guadalupe RN
[2018-12-23] MEDS: traMADol 50 MG TAB PO PRN (11:22)
--- NOTE | 2018-12-23 11:42 | PDDCSUM ---
Discharge Summary Discharge Summary: DATE OF ADMISSION: 12/20/18 DATE OF DISCHARGE: 12/23/18 DISPOSITION: Home, self-care PRINCIPAL ADMISSION DIAGNOSES: 1. 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 Right middle lobe pulmonary nodule suspicious for malignancy PRINCIPAL DISCHARGE DIAGNOSES: 1. Status post right thoracotomy with evacuation of effusion, decortication of middle and lower lobes, right middle lobectomy, and lymph node sampling 2. Adenocarcinoma of right lung 3. Acute on chronic anemia HISTORY OF PRESENT ILLNESS: 78 yo female with an enlarging right middle lobe pulmonary nodule and a recurrent symptomatic right pleural effusion following complications of a percutaneous lung biopsy, admitted for open lung surgery with wedge resection of the nodule. 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 Evacuation of effusion. Decortication of right lower and middle lobes. Right middle lobectomy. Regional lymph node sampling. ABBREVIATED HOSPITAL COURSE BY ACTIVE PROBLEM LIST: 1. Loculated rt pleural effusion with a spiculated middle lobe nodule - Dense peel confirmed by VATS and decortication with evac of bloody effusion undertaken via thoracotomy. Frozen section biopsy of lung nodule positive for adenocarcinoma and limited resection abandoned in favor of right middle lobectomy. Final path pending. Lung well expanded early postop without air leak , elevated drainage, or pain control issues. Stamina markedly improved and tube removed without incident on POD#3. 2. Acute on chronic (hemothorax) blood loss anemia - Preop H/H /. No sig intraop blood losses. Dip in postop H/H well tolerated and suspected to be mostly dilutional. DISCHARGE CLINICAL INFORMATION: Thoracotomy and port sites CDI, sutured, +Dermabond. HR 60s. SBP 140s. SpO2 95% RA. Wt 2.3 kg above admission at 54.4 kilos. Hgb 7.7, HCT 24.1, Plt 484, Na 135, K 4.2, Cr 0.8 DISCHARGE MEDICATIONS: As on admission with the following NEW prescription: 1. Tramadol 50 mg one half to one tab q6 hrs prn incisional pain. FOLLOW UP APPOINTMENTS: 1. CV surgery: with Dr Ocampo at [facility] on 01/01 at 10 am. 2. Pulmonology: with Dr Corbin at [facility] as directed. 3. Oncology: with Dr Rojas at [facility] as directed. FOLLOW UP TESTING: CXR prior to surgical appointment.
--- NOTE | 2018-12-23 14:59 | ASDISCHSUM ---
Discharge Information Plan Status:Home with No Needs Medically Cleared to Leave:12/23/2018 Discharge Date:12/23/2018 12:13 PM CM D/C Disposition:Home, Routine, Self-Care ADT D/C Disposition:Home, Routine, Self-Care Projected Discharge Date:12/23/2018 12:13 PM Transportation at D/C: Discharge Delay Reason: Follow-Up Date:12/23/2018 12:13 PM Discharge Slot: Final Diagnosis: Placement Information Patient Contact Information Contact Name:CARLOS MANUEL Relationship: Address:[address] City:[place] Alternate Phone: State/Zip Code:[place] [address] Email: Financial Information Financial Class:Medicare Primary Plan Desc:MEDICARE INPATIENT Primary Plan Number:[id number] Secondary Plan Desc:ANGLE Secondary Plan Number:[id number] Assessment Information LACE LACE Length of stay for Answers: 3 days current admission Acuity / Level of Answers: Yes Care: Did the patient have an inpatient admission? Comorbidities - select Answers: Other Notes: HTN all that apply # of Emergency department Answers: 0 visits in the last 6 months Score: 7 Date Signed: 12/23/2018 02:58 PM Electronically Signed By:Brenna Guadalupe RN [facility] CM Progress Note CM Note CM Note Notes: Patient is POd #1 R VATS conversion to R thoracotomy for evacuation of PE. She is stable. Normally independent, she lives with her Jitendra. PT/OT evals ordered. Case Management will follow. Date Signed: 12/21/2018 10:36 AM Electronically Signed By:Staci Bajwa RN [facility] CM Progress Note CM Note CM Note Notes: 12/23/2018 Case Management Note Reviewed chart. PT and OT have cleared pt to return home independent. Anticipating d/c Monday. Case Management d/c poc: independent with follow up as directed. Case Management available if needs change. Date Signed: 12/23/2018 09:24 AM Electronically Signed By:Brenna Guadalupe RN Intervention Information
--- NOTE | 2018-12-26 17:41 | GOP ---
[f rep st] OPERATIVE REPORT DATE OF OPERATION: 12/20/2018 SURGEON: Arjun Ocampo DO [employer] WORKER: Mallika Burgess ANESTHESIOLOGIST: Shauna Kimball PREOPERATIVE DIAGNOSIS: Right trapped lung and right middle lobe mass. POSTOPERATIVE DIAGNOSIS: Right trapped lung and right middle lobe mass with evidence of adenocarcino ma of the right middle lobe. PROCEDURE PERFORMED: 1. Right thoracoscopy with attempted decortication converted to open thoracotomy with decortication. 2. Wedge biopsy of right middle lobe lesion. 3. Right middle lobectomy with extensive lymph node sampling. FINDINGS: This patient had a needle biopsy for a right middle lobe lesion, resulted in a hemothorax with trapped lung. Despite conservative measures, was referred for decortication and biopsy of a rig ht middle lobe lesion. DESCRIPTION OF PROCEDURE: She was brought to the operating room, intubated with double-lumen endotra cheal tube, placed in the lateral decubitus position. Thoracoscopy ports were placed. There was a d ense fibrous adherent rim entrapping the entire lower and middle lobes as well as the posterior porti on of the upper lobe. I felt that it would be extremely difficult to do with thoracoscopy and conver roland to a little mini thoracotomy and decorticated the lung with an excellent result noted. We then d eveloped interlobar fissures and found a suspicious 7 mm spot on the surface of an inferior portion o f the right middle lobe. This was sent for frozen section and confirmed adenocarcinoma. We then com pleted the right middle lobectomy with double ligation of the proximal arterial vessels as well as th e pulmonary venous branches to the right middle lobe. The incomplete fissure was completed with stap les. A single chest tube was placed, and intercostal Marcaine was placed. The rib was closed in sta ndard fashion. The patient was returned to ICU in stable condition. We then spent a great deal of t abram excising NI and DARRYL lymph nodes as labeled. We also mobilized the azygos vein, and all the perit donna nodes on the right side were excised all the way up to the inlet of the thorax. /[id number]/MODL
== END 2018-12-23 12:13 | disposition home or self-care (01) | DRG 164 ==
LOC: F1N 10:03 → F2N 10:24 → F2W 12-22 15:15
PROVIDERS: ADMIT Thoracic Surgery (Cardiothoracic Vascular Surgery); ATTEND Thoracic Surgery (Cardiothoracic Vascular Surgery)
PROC: 0BNF0ZZ Release Right Lower Lung Lobe, Open Approach (ICD-10-PCS; principal; 2018-12-20 11:30)
PROC: 07B70ZX Excision of Thorax Lymphatic, Open Approach, Diagnostic (ICD-10-PCS; principal; 2018-12-20 11:30)
PROC: 0BND0ZZ Release Right Middle Lung Lobe, Open Approach (ICD-10-PCS; principal; 2018-12-20 11:30)
PROC: 0BTD0ZZ Resection of Right Middle Lung Lobe, Open Approach (ICD-10-PCS; principal; 2018-12-20 11:30)
PROC: 0W990ZX Drainage of Right Pleural Cavity, Open Approach, Diagnostic (ICD-10-PCS; principal; 2018-12-20 11:30)
DX: C34.2 Malignant neoplasm of middle lobe, bronchus or lung (principal); J94.2 Hemothorax; D62 Acute posthemorrhagic anemia; I10 Essential (primary) hypertension; Z53.32 Thoracoscopic surgical procedure converted to open procedure; Z96.651 Presence of right artificial knee joint; Z86.010 Personal history of colon polyps
CPT/HCPCS: 92610-GN; 97116-GP; 97161-GP; 97165-GO; J0360; J0690; J1170; J1644; J1885; J1940; J2250; J2370; J2405; J2704; J2710; J3010; P9041

== ENCOUNTER → 2019-01-01 | Outpatient (CLI) | payer OTHER | LOC: FIMAGING 09:27 | PROVIDERS: ATTEND Thoracic Surgery (Cardiothoracic Vascular Surgery) | DX: Z09 Encounter for follow-up examination after completed treatment for conditions other than malignant neoplasm (principal); J98.4 Other disorders of lung ==

== ENCOUNTER → 2019-02-08 | Outpatient (CLI) | payer OTHER | LOC: FIMAGING 08:16 | PROVIDERS: ATTEND Internal Medicine | DX: J90 Pleural effusion, not elsewhere classified (principal); K76.89 Other specified diseases of liver; J44.9 Chronic obstructive pulmonary disease, unspecified; R16.0 Hepatomegaly, not elsewhere classified; Z79.899 Other long term (current) drug therapy ==